=== PATIENT | male | born 1940 | race Caucasian/White ===

== ENCOUNTER 2020-02-18 11:35 | Inpatient (IN) | payer MEDICARE, BC ==
--- NOTE | 2020-02-18 12:40 | RAD ---
RIGHT FOOT 3 VIEWS: HISTORY: Foot wounds, that are not healing. COMPARISON: None. FINDINGS: Soft tissue swelling on the lateral aspect of the right foot. Bone demineralization involving the dis vani medial aspect of the fifth metatarsal and proximal phalanx of the fifth digit. Correlate for osteomyelitis. Minimal vascular calcifications. Lisfranc alignment is maintained. There are degenerat sharon changes in the first metatarsal navicular joint space. Irregularity involving the distal tibia. Refer to separate right ankle radiograph report for further detail. IMPRESSION: Cellulitis and osteomyelitis involving the fifth digit is suspected. Transcribed Date/Time: 02/18/2020 12:51 PM
--- NOTE | 2020-02-18 12:45 | RAD ---
THREE VIEWS RIGHT ANKLE: HISTORY: Nonhealing foot wound. COMPARISON: None. FINDINGS: Osseous lesion with bony remodeling involving the distal tibia. No significant periosteal reaction. N o cortical disruption. No evidence of fractures. There is lateral soft tissue swelling. IMPRESSION: 1. Lateral soft tissue swelling. Correlate for cellulitis given findings in the right foot. 2. Intraosseous lesion along the distal tibia. Lesion is noted on a lower extremity runoff CT 02/26/20 12. Given persistence, possibly a low-grade chondroid lesion is suspected. Transcribed Date/Time: 02/18/2020 12:49 PM
[2020-02-18 13:14] LABS: #Eosinphils 0.2 thou/uL (0.0-0.7); #Lymphocytes 1.1 thou/uL (1.20-3.40); #Monocytes 0.8 thou/uL (0.11-0.59); #Neutrophils 8.8 thou/uL (1.40-6.50); %Basophils 0.1 % (0.0-1.0); %Eosinophils 2.2 % (0.0-10.0); %Lymphocytes 10.1 % (21.0-51.0); %Monocytes 7.4 % (0.0-10.0); %Neutrophils 80.1 % (42.0-75.0); Hemoglobin 14.8 g/dL (14.0-18.0); Mean Corpuscular HGB CONC 36.8 g/dL (32.0-36.0); Mean Corpuscular Hemoglobin 32.9 pg (27.0-31.0); Mean Corpuscular Volume 89.3 fL (78.0-98.0); Mean Platelet Volume 6.9 fL (7.4-10.4); Platelet Count 255 thou/uL (130-400); Red Blood Cell (RBC) Count 4.49 mill/uL (4.70-6.10); White Blood Cell (WBC) Count 10.9 thou/uL (4.8-10.8)
[2020-02-18 13:21] LABS: Albumin 3.7 g/dL (3.4-4.8)
[2020-02-18 13:22] LABS: Chloride 106 mmol/L (98-107); Potassium 4.2 mmol/L (3.5-5.1); Sodium 140 mmol/L (136-145)
[2020-02-18 13:23] LABS: Calcium 9.5 mg/dL (7.8-10.44)
[2020-02-18 13:24] LABS: Globulin 3.3 g/dL (2.4-3.5); Glucose 101 mg/dL (83-110)
[2020-02-18 13:25] LABS: Anion Gap 12 mmol/L (10-20); Carbon Dioxide 26 mmol/L (23-31)
[2020-02-18 13:26] LABS: Alkaline Phosphatase 64 U/L (40-110); Bilirubin, Total 0.9 mg/dL (0.2-1.2)
[2020-02-18 13:27] LABS: Calc. Creatinine Clearance 0 mL/min (70-130); Estimated GFR-MDRD 71
[2020-02-18 13:28] LABS: BUN (Urea Nitrogen) 12 mg/dL (8.4-25.7)
[2020-02-18 13:29] LABS: AST (SGOT) 24 U/L (5-34)
[2020-02-18 13:30] LABS: ALT (SGPT) 27 U/L (8-55)
[2020-02-18] MEDS ORDERED: Vancomycin 1.5 GRAM/300 ML BAG 1.5 GM in Premix Bag 1 BAG IVPB SCH (14:00)
[2020-02-18] MEDS ORDERED: Calcium Carbonate 500 MG ChewTAB PO PRN (15:05)
[2020-02-18] MEDS ORDERED: Ondansetron PF 4 MG/2 ML Vial IVP PRN (15:05)
[2020-02-18] MEDS ORDERED: Bisacodyl 10 MG SUPP PR PRN (15:05)
[2020-02-18] MEDS ORDERED: Senokot S 8.6-50 MG TAB PO PRN (15:05)
[2020-02-18] MEDS ORDERED: Guaifenesin DM 100-10/5 ML UDCUP PO PRN (15:05)
[2020-02-18] MEDS ORDERED: Acetaminophen 325 MG TAB PO PRN (15:05)
[2020-02-18 15:20] VITALS: BMI 26.9
--- NOTE | 2020-02-18 15:58 | HP ---
REASON FOR ADMISSION: Right foot osteomyelitis. HISTORY OF PRESENTING ILLNESS: The patient gives history of working in his yard 2 weeks back and was cutting wood. He apparently slipped and fell. From then on , he has had some pain and discoloration of his right lateral aspect of the foot. The discoloration became worse and it started to swell up from last 1 week. The patient finally started to develop blisters and drainage with open wounds on his ankle and redness starting to creep up his legs. He went to see Dr. Phoenix on Sunday. He was given antibiotics. He had a followup again this morning and was asked to go to the ER. The patient saw Dr. Larios, his vascular surgeon last Sunday. The wound did not appear infected and was told to observe for any worsening. The patient also has seen Dr. Villeda on Sunday for his 6 monthly followup for atrial fibrillation. He is also scheduled for a stress test in the coming weeks. No history of fever. No exposure to coronavirus. The patient has been following strict social distancing and CDC guidelines. PAST MEDICAL AND SURGICAL HISTORY: Chronic atrial fibrillation with prior ablation, dyslipidemia, history of prostate cancer, hypertension, has had multiple surgeries for the hip and 2 hernia repairs with mesh. CURRENT MEDICATIONS: The patient is on, 1. Pradaxa 150 mg twice daily, the last dose was this morning. 2. Fish oil one capsule daily. 3. Norvasc 10 mg daily. 4. Olmesartan daily. 5. Atorvastatin 40 mg daily. 6. Multivitamin one tablet once daily. 7. Lasix 20 mg daily. 8. Vitamin C 500 mg p.o. daily. ALLERGIES: TO CEFDINIR, HYDROCODONE, AND MORPHINE. PERSONAL HISTORY: Does not abuse alcohol or drugs. No history of smoking. FAMILY HISTORY: Mother at the age of 81. She has had history of stroke. Father of lung cancer and its complications, who was a heavy smoker. He at the age of 76. The patient is and lives with his . CODE STATUS: Full. REVIEW OF SYSTEMS: CONSTITUTIONAL: Negative for weight loss or gain, ability to conduct usual activities. SKIN: Negative for rash, itching. EYES: Negative for double vision, pain. ENT/MOUTH: Negative for nose bleeding, neck stiffness, pain, tenderness. CARDIOVASCULAR: Negative for palpitations, dyspnea on exertion, orthopnea. RESPIRATORY: Negative for shortness of breath, wheezing, cough, hemoptysis, fever or night sweats. GASTROINTESTINAL: Negative for poor appetite, abdominal pain, heartburn, nausea , vomiting, constipation, or diarrhea. GENITOURINARY: Negative for urgency, frequency, dysuria, nocturia. MUSCULOSKELETAL: Negative for pain, swelling. NEUROLOGIC/PSYCHIATRIC: Negative for anxiety, depression. ALLERGY/IMMUNOLOGIC: Negative for skin rash, bleeding tendency. PHYSICAL EXAMINATION: GENERAL: The patient is a 79-year-old male, who is currently not in any acute distress. VITAL SIGNS: Blood pressure 146/82, pulse 74 per minute, respiratory rate 18 per minute, temperature 98.2 degrees Fahrenheit, saturating 97% on room air. NECK: Supple. No elevated JVD. HEENT: Eyes; extraocular muscles intact. Pupils reacting to light. Oral cavity, mucous membranes are moist. No exudates or congestion. CARDIOVASCULAR: S1 and S2 heard. Regular rhythm. RESPIRATORY: Air entry 2+ bilateral. No rales or rhonchi. ABDOMEN: Soft. Bowel sounds heard. No tenderness, rigidity, or guarding. EXTREMITIES: Right foot, there is edema, blistering, and discoloration right great toe and right fifth toe. He has ulcer between the 4th and 5th toes. There are ecchymosis and erythema of the forefoot all across his lateral foot and ankle as well. He also has some blister, which is opened up on the medial aspect of the right ankle. Peripheral pulses are 1+ bilateral. CENTRAL NERVOUS SYSTEM: No gross focal motor deficits noted. The patient is alert, awake, and oriented well. PSYCHIATRIC: The patient's mood is euthymic. No hallucinations or delusions. LABORATORY DATA: Three-view right ankle x-ray done, lateral soft tissue swelling. There is intraosseous lesion along the distal tibia, possible low-grade chondroid lesion suspected. Right foot 3-view x-ray shows cellulitis and osteomyelitis involving the 5th digit on the right foot. BUN 12, creatinine 1.0. Liver enzymes within normal limits. CRP is 5.19. Albumin is 3.7. Electrolytes stable. White count of 10, H and H of 14 and 40, platelet count 255, MCV is 89 with 80% neutrophils. CLINICAL IMPRESSION AND PLAN: The patient will be admitted to medical floor for osteomyelitis of the right foot. He will be on vancomycin and Zosyn. I have spoken to Dr. Vasquez Larios for surgical consultation. He has had peripheral vascular disease and has stents in both lower extremities. We will continue his aspirin, Lipitor, Cozaar, and Norvasc as before. The patient's Pradaxa will be held in anticipation of possible surgeries. We will continue to closely monitor him on medical floor. Job ID: [id number] MTDD
[2020-02-18] MEDS: Piperacillin/Tazobactam 3.375 GM in Sodium Chloride 0.9% 100 ML IVPB SCH ×2 (16:59→23:36)
[2020-02-19] MEDS: diphenhydrAMINE 50 MG CAP PO PRN ×2 (00:46→21:35)
--- NOTE | 2020-02-19 01:15 | CON ---
DATE OF CONSULTATION: 02/18/2020 REASON FOR CONSULTATION: Evaluate patient with a right foot osteomyelitis. HISTORY OF PRESENT ILLNESS: Mr. Suggs is a 79-year-old gentleman, who I have known in the past. 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 He was seen in the office approximately a week ago after a fall in the yard. He had pain in his lateral ankle, where he had a blister. The blister has since ruptured and this appears to be healing well. He also had pain in his 5th metatarsal/digital junction. X-rays of this today show osteomyelitis. He has wet gangrene between his 4th and 5th toes. He also has dry gangrene of the great toe and the 2nd toe. PAST MEDICAL HISTORY: 1. Chronic atrial fibrillation, on chronic Pradaxa therapy-prior ablation was unsuccessful in converting him to sinus rhythm. 2. Hypertension. 3. History of prostate cancer. 4. Dyslipidemia. 5. History of popliteal aneurysm, status post stent grafting. PAST SURGICAL HISTORY: 1. Stent grafting his popliteal aneurysm. 2. Hip replacements. 3. Hernia repairs. CURRENT MEDICATIONS: 1. Pradaxa 150 mg b.i.d.-he last took this morning. 2. Fish oil daily. 3. Norvasc 10 mg daily. 4. Atorvastatin 40 mg daily. 5. Lasix 20 mg daily. ALLERGIES: CEFDINIR, HYDROCODONE, AND MORPHINE. 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 He does not use alcohol or other drugs. He has not used tobacco. PHYSICAL EXAMINATION: GENERAL: This is a well-developed, well-nourished man, resting comfortably in the medical unit. VITAL SIGNS: Temperature is 98.6, pulse is 68 and irregularly irregular. Blood pressure is 189/91. HEENT: Sclerae nonicteric. Pupils are equal and round bilaterally. NECK: Supple. He has no carotid bruits. CHEST: Clear bilaterally. HEART: Rhythm is irregularly irregular. There are no murmurs or rubs. ABDOMEN: Soft and nontender. EXTREMITIES: Left lower extremity is warm to the touch. He has palpable posterior tibial pulse. Right lower extremity is warm to the touch down the level of the mid foot. He has a good Doppler signal in his posterior tibial and dorsalis pedis arteries. The forefoot and distally are ischemic. There is skin breakdown between the 4th and 5th toes with foul odor. His great and 2nd toe have blisters and are dusky. Skin on the dorsal surface of the foot appears healthy down to the metatarsophalangeal joints. LABORATORY DATA: White blood cell count is 10.9, hemoglobin is 14.8, platelet count is 255,000, potassium is 4.2, creatinine is 1.02. ASSESSMENT AND PLAN: Distal ischemia of his right foot. We discussed transmetatarsal amputation and the patient is agreeable. We will make some plans for tomorrow morning. Risks, benefits, and options have been outlined with him. Job ID: [id number]
[2020-02-19 05:59] LABS: #Eosinphils 0.4 thou/uL (0.0-0.7); #Lymphocytes 1.6 thou/uL (1.20-3.40); #Monocytes 0.9 thou/uL (0.11-0.59); #Neutrophils 6.5 thou/uL (1.40-6.50); %Basophils 0.1 % (0.0-1.0); %Eosinophils 3.8 % (0.0-10.0); %Lymphocytes 17.5 % (21.0-51.0); %Monocytes 9.4 % (0.0-10.0); %Neutrophils 69.3 % (42.0-75.0); Hemoglobin 14.6 g/dL (14.0-18.0); Mean Corpuscular HGB CONC 35.6 g/dL (32.0-36.0); Mean Corpuscular Hemoglobin 31.5 pg (27.0-31.0); Mean Corpuscular Volume 88.7 fL (78.0-98.0); Mean Platelet Volume 7.1 fL (7.4-10.4); Platelet Count 273 thou/uL (130-400); Red Blood Cell (RBC) Count 4.63 mill/uL (4.70-6.10); White Blood Cell (WBC) Count 9.4 thou/uL (4.8-10.8)
[2020-02-19 06:18] LABS: Anion Gap 14 mmol/L (10-20); BUN (Urea Nitrogen) 11 mg/dL (8.4-25.7); Calc. Creatinine Clearance 70 mL/min (70-130); Calcium 9.1 mg/dL (7.8-10.44); Carbon Dioxide 27 mmol/L (23-31); Chloride 103 mmol/L (98-107); Estimated GFR-MDRD 66; Glucose 103 mg/dL (83-110); Potassium 3.1 mmol/L (3.5-5.1); Sodium 141 mmol/L (136-145)
[2020-02-19] MEDS ORDERED: Potassium Chloride 20 MEQ/100 ML PREMIX BAG IVPB SCH (09:30)
[2020-02-19] MEDS: Amlodipine 10 MG TAB PO SCH (09:31)
[2020-02-19] MEDS: Piperacillin/Tazobactam 3.375 GM in Sodium Chloride 0.9% 100 ML IVPB SCH ×3 (09:31→23:42)
[2020-02-19] MEDS ORDERED: Potassium Chloride 20 MEQ in Premix Bag 1 BAG IVPB SCH (09:45)
[2020-02-19] MEDS: Losartan 25 MG TAB PO SCH (10:14)
[2020-02-19] MEDS: Aspirin 81 mg Enteric Coated Tablet PO SCH (10:14)
[2020-02-19] MEDS: Fish Oil 1,000 MG CAP PO SCH (10:14)
[2020-02-19] MEDS: Multivit, Therapeutic 1 TAB PO SCH (10:15)
[2020-02-19] MEDS ORDERED: Dexamethasone 20 MG/5 ML VIAL ONE (10:58)
[2020-02-19] MEDS ORDERED: Ropivacaine 0.5% HCl/PF (150 MG/30 ML VIAL) ONE (10:58)
[2020-02-19] MEDS ORDERED: Vancomycin HCl 1.75 GM in Sodium Chloride 0.9% 500 ML IVPB SCH (14:00)
[2020-02-19] MEDS ORDERED: Fentanyl 100 MCG/2 ML VIAL ONE (14:08)
[2020-02-19] MEDS ORDERED: Dexamethasone 4 mg/ml Vial ONE (14:12)
[2020-02-19] MEDS ORDERED: EPINEPHrine 1 MG/ML AMP ONE (14:18)
[2020-02-19] MEDS ORDERED: Bupivacaine PF 0.5% 30 ML VIAL ONE (14:18)
[2020-02-19] MEDS ORDERED: Lidocaine 1% w/Epinephrine 1:100K 20 ML VIAL ONE (14:18)
[2020-02-19] MEDS ORDERED: Propofol 500 MG/50 ML VIAL ONE (14:35)
[2020-02-19] MEDS ORDERED: traMADol HCl 50 MG TAB PO PRN (16:14)
[2020-02-19] MEDS ORDERED: Fentanyl 100 MCG/2 ML VIAL SLOW IVP PRN ×2 (16:14)
[2020-02-19] MEDS: Atorvastatin Calcium 40 MG TAB PO SCH (21:07)
--- NOTE | 2020-02-19 22:04 | PDOC.HOSPP ---
- Subjective Encounter Date: 02/19/20 Encounter Time: 10:30 Subjective: Patient seen and examined for osteomyelitis. Pain controlled. No new complaints. No overnight events - Objective Vital Signs & Weight: Vital Signs (12 hours) Temp Pulse Resp BP BP Pulse Ox 02/19/20 20:00 98.2 F 55 L 20 154/82 H 95 02/19/20 17:02 57 L 18 154/82 H 95 02/19/20 12:04 98.8 F 60 18 151/75 H 96 Weight Admit Weight 192 lb 11.2 oz Weight 192 lb 11.2 oz I&O: 02/18/20 02/19/20 02/20/20 06:59 06:59 06:59 Intake Total 200 920 Balance 200 920 Result Diagrams: 02/19/20 05:21 02/19/20 05:21 Radiology Reviewed by me: Yes (foot XR - reviewed) Hospitalist ROS - Review of Systems Respiratory: denies: cough, dry, shortness of breath, hemoptysis, SOB with excertion, pleuritic pain, sputum, wheezing, other Cardiovascular: denies: chest pain, palpitations, orthopnea, paroxysmal noc. dyspnea, edema, light headedness, other - Medication Medications: Active Medications Generic Name Dose Route Start Last Admin Trade Name Freq PRN Reason Stop Dose Admin Amlodipine Besylate 10 mg 02/19/20 09:00 02/19/20 09:31 Norvasc PO 10 mg DAILY CHERYL Administration Aspirin 81 mg 02/19/20 09:00 02/19/20 10:14 Ecotrin PO Not Given DAILY CHERYL Atorvastatin Calcium 40 mg 02/19/20 21:00 02/19/20 21:07 Lipitor PO 40 mg HS CHERYL Administration Diphenhydramine HCl 50 mg 02/18/20 23:43 02/19/20 21:35 Benadryl PO 50 mg HS PRN Administration Insomnia Fish Oil 1,000 mg 02/19/20 09:00 02/19/20 10:14 Fish Oil PO Not Given DAILY CHERYL Piperacillin Sod/Tazobactam 100 mls @ 200 mls/hr 02/18/20 16:00 02/19/20 16: 52 Sod 3.375 gm/ Sodium Chloride IVPB 100 mls 0800,1600,2359 CHERYL Administration Vancomycin HCl 1.75 gm/ Sodium 500 mls @ 250 mls/hr 02/19/20 14:00 02/19/20 16:44 Chloride IVPB Not Given 1400 CHERYL Losartan Potassium 25 mg 02/19/20 09:00 02/19/20 10:14 Cozaar PO Not Given DAILY CHERYL Multivitamins 1 tab 02/19/20 09:00 02/19/20 10:15 Theragran PO Not Given DAILY CHERYL - Exam General Appearance: NAD Neck: supple, no JVD Heart: no gallops, irregular Respiratory: no wheezes, no ronchi Gastrointestinal: non-tender, non-distended, normal bowel sounds Hosp A/P - Plan DVT proph w/SCDs Right foot osteomyelitis PVD HTN Dyslipidemia Hypokalemia Chronic Afib on anticoag h/o Prostate CA PLAN: TMA today Replace Potassium AM labs CV input appreciated Cont other meds Anticoag on hold
--- NOTE | 2020-02-19 22:38 | OP ---
DATE OF PROCEDURE: 02/19/2020 PREOPERATIVE DIAGNOSES: Ischemic toes with wet gangrene of the fourth and fifth toes, osteomyelitis of the fifth metatarsophalangeal joint, and dry gangrene of the great and second toe. POSTOPERATIVE DIAGNOSES: Ischemic toes with wet gangrene of the fourth and fifth toes, osteomyelitis of the fifth metatarsophalangeal joint, and dry gangrene of the great and second toe. PROCEDURE PERFORMED: Transmetatarsal amputation of the right foot. ANESTHESIA: A popliteal and visceral block provided by Dr. Singletary and sedation. ESTIMATED BLOOD LOSS: Less than 100. SPECIMENS: His toes. DESCRIPTION OF PROCEDURE: After consent was obtained, the patient was brought to the operating room and placed in supine position on the operating room table. Appropriate central line and monitors were placed and IV sedation begun. Right foot was prepped and draped in usual sterile fashion. A skin incision was made across the distal metatarsals, creating a posterior dorsal flap. The skin and subcutaneous tissues were divided down to the level of the bone. The posterior flap was created. Bones were divided with a saw and were smoothed. The remainder of the amputation was completed with electrocautery. The wound was copiously irrigated. The posterior flap was brought up and positioned with interrupted 2-0 Vicryl. Skin clips were used to close the skin. A fluff dressing was applied. The patient tolerated the procedure well and was transferred to the recovery room in stable condition. Job ID: [id number]
[2020-02-20 05:50] LABS: #Lymphocytes 0.9 thou/uL (1.20-3.40); #Monocytes 0.5 thou/uL (0.11-0.59); #Neutrophils 7.9 thou/uL (1.40-6.50); %Basophils 0.2 % (0.0-1.0); %Eosinophils 0.2 % (0.0-10.0); %Lymphocytes 9.5 % (21.0-51.0); %Monocytes 4.9 % (0.0-10.0); %Neutrophils 85.2 % (42.0-75.0); Hemoglobin 14.9 g/dL (14.0-18.0); Mean Corpuscular Volume 88.2 fL (78.0-98.0); Mean Platelet Volume 6.9 fL (7.4-10.4); Platelet Count 277 thou/uL (130-400); RBC Distribution Width 12.8 % (11.5-14.5); Red Blood Cell (RBC) Count 4.94 mill/uL (4.70-6.10); White Blood Cell (WBC) Count 9.3 thou/uL (4.8-10.8)
[2020-02-20 06:17] LABS: Anion Gap 13 mmol/L (10-20); BUN (Urea Nitrogen) 15 mg/dL (8.4-25.7); Calc. Creatinine Clearance 71 mL/min (70-130); Calcium 9.3 mg/dL (7.8-10.44); Carbon Dioxide 25 mmol/L (23-31); Chloride 105 mmol/L (98-107); Estimated GFR-MDRD 67; Glucose 174 mg/dL (83-110); Magnesium 2.2 mg/dL (1.6-2.6); Potassium 3.9 mmol/L (3.5-5.1); Sodium 139 mmol/L (136-145)
[2020-02-20] MEDS: Piperacillin/Tazobactam 3.375 GM in Sodium Chloride 0.9% 100 ML IVPB SCH ×2 (09:11→17:25)
[2020-02-20] MEDS: Fish Oil 1,000 MG CAP PO SCH (09:11)
[2020-02-20] MEDS: Amlodipine 10 MG TAB PO SCH (09:12)
[2020-02-20] MEDS: Multivit, Therapeutic 1 TAB PO SCH (09:12)
[2020-02-20] MEDS: Aspirin 81 mg Enteric Coated Tablet PO SCH (09:13)
[2020-02-20] MEDS: Losartan 25 MG TAB PO SCH (09:24)
--- NOTE | 2020-02-20 11:31 | PDOC.HOSPP ---
- Subjective Encounter Date: 02/20/20 Encounter Time: 08:00 Subjective: Patient seen and examined for Rt foot gangrene. Pain controlled. No fever or chills. No new complaints. No overnight events - Objective Vital Signs & Weight: Vital Signs (12 hours) Temp Pulse Resp BP BP Pulse Ox 02/20/20 09:12 54 L 145/80 H 02/20/20 07:49 98.0 F 54 L 16 145/80 H 96 Weight Admit Weight 192 lb 11.2 oz Weight 192 lb 11.2 oz I&O: 02/19/20 02/20/20 02/21/20 06:59 06:59 06:59 Intake Total 200 920 Balance 200 920 Result Diagrams: 02/20/20 05:37 02/20/20 05:37 Hospitalist ROS - Review of Systems Respiratory: denies: cough, dry, shortness of breath, hemoptysis, SOB with excertion, pleuritic pain, sputum, wheezing, other Cardiovascular: denies: chest pain, palpitations, orthopnea, paroxysmal noc. dyspnea, edema, light headedness, other - Medication Medications: Active Medications Generic Name Dose Route Start Last Admin Trade Name Freq PRN Reason Stop Dose Admin Amlodipine Besylate 10 mg 02/19/20 09:00 02/20/20 09:12 Norvasc PO 10 mg DAILY CHERYL Administration Aspirin 81 mg 02/19/20 09:00 02/20/20 09:13 Ecotrin PO Not Given DAILY CHERYL Atorvastatin Calcium 40 mg 02/19/20 21:00 02/19/20 21:07 Lipitor PO 40 mg HS CHERYL Administration Diphenhydramine HCl 50 mg 02/18/20 23:43 02/19/20 21:35 Benadryl PO 50 mg HS PRN Administration Insomnia Fish Oil 1,000 mg 02/19/20 09:00 02/20/20 09:11 Fish Oil PO 1,000 mg DAILY CHERYL Administration Piperacillin Sod/Tazobactam 100 mls @ 200 mls/hr 02/18/20 16:00 02/20/20 09: 11 Sod 3.375 gm/ Sodium Chloride IVPB 100 mls 0800,1600,2359 CHERYL Administration Vancomycin HCl 1.75 gm/ Sodium 500 mls @ 250 mls/hr 02/19/20 14:00 02/19/20 16:44 Chloride IVPB Not Given 1400 CHERYL Losartan Potassium 25 mg 02/19/20 09:00 02/20/20 09:24 Cozaar PO 25 mg DAILY CHERYL Administration Multivitamins 1 tab 02/19/20 09:00 02/20/20 09:12 Theragran PO 1 tab DAILY CHERYL Administration - Exam General Appearance: NAD Heart: RRR, no gallops Respiratory: no wheezes, no ronchi Gastrointestinal: soft, non-tender, normal bowel sounds Extremities: no cyanosis Extremities - other findings: Rt foot dressing + Neurological: no new deficit Hosp A/P - Plan Right foot osteomyelitis/gangrene s/p TMA PVD HTN Dyslipidemia Hypokalemia Chronic Afib on anticoag h/o Prostate CA PLAN: Cont supportive care Cont ASA/Amlodipine Cont Losartan Cont Atbx Monitor Vancomycin level Cont other meds as above Anticoag restarted
[2020-02-20 13:19] LABS: Vancomycin, Trough 8.3 ug/mL
[2020-02-20] MEDS: Vancomycin HCl 1.25 GM in Sodium Chloride 0.9% 250 ML 250 ML IVPB SCH (14:36)
[2020-02-20] MEDS: Dabigatran 150 mg Capsule PO SCH (20:01)
[2020-02-20] MEDS: Atorvastatin Calcium 40 MG TAB PO SCH (20:01)
[2020-02-20] MEDS: diphenhydrAMINE 50 MG CAP PO PRN (20:19)
[2020-02-21] MEDS: Piperacillin/Tazobactam 3.375 GM in Sodium Chloride 0.9% 100 ML IVPB SCH ×3 (00:26→18:01)
[2020-02-21] MEDS: Vancomycin HCl 1.25 GM in Sodium Chloride 0.9% 250 ML 250 ML IVPB SCH ×2 (01:31→14:49)
[2020-02-21] MEDS: traMADol HCl 50 MG TAB PO PRN ×2 (03:34→10:47)
[2020-02-21] MEDS: Losartan 25 MG TAB PO SCH (09:20)
[2020-02-21] MEDS: Fish Oil 1,000 MG CAP PO SCH (09:20)
[2020-02-21] MEDS: Multivit, Therapeutic 1 TAB PO SCH (09:20)
[2020-02-21] MEDS: Amlodipine 10 MG TAB PO SCH ×2 (09:20→21:23)
[2020-02-21] MEDS: Dabigatran 150 mg Capsule PO SCH ×2 (09:22→21:12)
[2020-02-21] MEDS: Aspirin 81 mg Enteric Coated Tablet PO SCH (09:22)
[2020-02-21] MEDS ORDERED: Polyethylene Glycol 3350 17 GM Packet PO PRN (11:03)
--- NOTE | 2020-02-21 11:04 | PDOC.HOSPP ---
- Subjective Encounter Date: 02/21/20 Encounter Time: 10:00 Subjective: Patient seen and examined for osteomyelitis/gangrene. Pain controlled. No fever/ N/V/diarrhea. No new complaints. No overnight events - Objective Vital Signs & Weight: Vital Signs (12 hours) Temp Pulse Resp BP Pulse Ox 02/21/20 09:10 94 L 02/21/20 07:48 98.1 F 62 20 166/83 H 94 L Weight Admit Weight 192 lb 11.2 oz Weight 192 lb 11.2 oz I&O: 02/20/20 02/21/20 02/22/20 06:59 06:59 06:59 Intake Total 920 830 Output Total 1050 Balance 920 -220 Result Diagrams: 02/20/20 05:37 02/20/20 05:37 Hospitalist ROS - Review of Systems Cardiovascular: denies: chest pain, palpitations, orthopnea, paroxysmal noc. dyspnea, edema, light headedness, other Gastrointestinal: denies: nausea, vomiting, abdominal pain, diarrhea, constipation, melena, hematochezia, other - Medication Medications: Active Medications Generic Name Dose Route Start Last Admin Trade Name Freq PRN Reason Stop Dose Admin Amlodipine Besylate 10 mg 02/19/20 09:00 02/21/20 09:20 Norvasc PO 10 mg DAILY CHERYL Administration Aspirin 81 mg 02/19/20 09:00 02/21/20 09:22 Ecotrin PO Not Given DAILY CHERYL Atorvastatin Calcium 40 mg 02/19/20 21:00 02/20/20 20:01 Lipitor PO 40 mg HS CHERYL Administration Dabigatran 150 mg 02/20/20 21:00 02/21/20 09:22 Pradaxa PO 150 mg BID CHERYL Administration Diphenhydramine HCl 50 mg 02/18/20 23:43 02/20/20 20:19 Benadryl PO 50 mg HS PRN Administration Insomnia Fish Oil 1,000 mg 02/19/20 09:00 02/21/20 09:20 Fish Oil PO 1,000 mg DAILY CHERYL Administration Piperacillin Sod/Tazobactam 100 mls @ 200 mls/hr 02/18/20 16:00 02/21/20 09: 18 Sod 3.375 gm/ Sodium Chloride IVPB 100 mls 0800,1600,2359 CHERYL Administration Vancomycin HCl 1.25 gm/ Sodium 250 mls @ 166.667 mls/hr 02/20/20 14:00 01:31 Chloride IVPB 250 mls 0200,1400 CHERYL Administration Losartan Potassium 25 mg 02/19/20 09:00 02/21/20 09:20 Cozaar PO 25 mg DAILY CHERYL Administration Multivitamins 1 tab 02/19/20 09:00 02/21/20 09:20 Theragran PO 1 tab DAILY CHERYL Administration Tramadol HCl 50 mg 02/19/20 16:14 02/21/20 10:47 Ultram PO 50 mg Q6H PRN Administration Moderate Pain (4-6) - Exam General Appearance: NAD Heart: RRR, no gallops Respiratory: no wheezes, no rales Gastrointestinal: non-tender, non-distended, normal bowel sounds Extremities: no cyanosis, no clubbing Hosp A/P - Plan Right foot osteomyelitis/gangrene s/p TMA PVD HTN Dyslipidemia Hypokalemia Chronic Afib on anticoag h/o Prostate CA PLAN: Cont ASA/Amlodipine/ Losartan Cont IV Vancomycin/Zosyn Monitor Vancomycin level Cont other meds as above
[2020-02-21] MEDS: Polyethylene Glycol 3350 17 GM Packet PO SCH (21:11)
[2020-02-21] MEDS: Atorvastatin Calcium 40 MG TAB PO SCH (21:12)
[2020-02-21] MEDS: Senokot S 8.6-50 MG TAB PO SCH (21:12)
[2020-02-22] MEDS: Piperacillin/Tazobactam 3.375 GM in Sodium Chloride 0.9% 100 ML IVPB SCH ×4 (00:51→23:19)
[2020-02-22 01:17] LABS: Vancomycin, Trough 21.9 ug/mL
[2020-02-22] MEDS: Vancomycin 1 GM in Premix Bag 1 BAG IVPB SCH ×2 (01:52→14:04)
[2020-02-22] MEDS: Losartan 25 MG TAB PO SCH (08:22)
[2020-02-22] MEDS: Dabigatran 150 mg Capsule PO SCH ×2 (08:22→20:35)
[2020-02-22] MEDS: Multivit, Therapeutic 1 TAB PO SCH (08:23)
[2020-02-22] MEDS: Fish Oil 1,000 MG CAP PO SCH (08:23)
[2020-02-22] MEDS: Senokot S 8.6-50 MG TAB PO SCH ×2 (09:13→20:36)
[2020-02-22] MEDS: Aspirin 81 mg Enteric Coated Tablet PO SCH (09:13)
--- NOTE | 2020-02-22 12:58 | PDOC.HOSPP ---
- Subjective Encounter Date: 02/22/20 Encounter Time: 11:30 Subjective: Patient seen and examined for gangrene. Pain controlled. No N/V. No new complaints. No overnight events - Objective Vital Signs & Weight: Vital Signs (12 hours) Temp Pulse Resp BP Pulse Ox 02/22/20 08:20 95 02/22/20 07:07 98.3 F 72 18 165/82 H 95 Weight Admit Weight 192 lb 11.2 oz Weight 192 lb 11.2 oz I&O: 02/21/20 02/22/20 02/23/20 06:59 06:59 06:59 Intake Total 830 2070 Output Total 1050 2550 Balance -220 -480 Result Diagrams: 02/20/20 05:37 02/20/20 05:37 Hospitalist ROS - Review of Systems Respiratory: denies: cough, dry, shortness of breath, hemoptysis, SOB with excertion, pleuritic pain, sputum, wheezing, other Cardiovascular: denies: chest pain, palpitations, orthopnea, paroxysmal noc. dyspnea, edema, light headedness, other - Medication Medications: Active Medications Generic Name Dose Route Start Last Admin Trade Name Freq PRN Reason Stop Dose Admin Amlodipine Besylate 10 mg 02/21/20 21:00 02/21/20 21:23 Norvasc PO 10 mg 2100 CHERYL Administration Aspirin 81 mg 02/19/20 09:00 02/22/20 09:13 Ecotrin PO Not Given DAILY CHERYL Atorvastatin Calcium 40 mg 02/19/20 21:00 02/21/20 21:12 Lipitor PO 40 mg HS CHERYL Administration Dabigatran 150 mg 02/20/20 21:00 02/22/20 08:22 Pradaxa PO 150 mg BID CHERYL Administration Diphenhydramine HCl 50 mg 02/18/20 23:43 02/20/20 20:19 Benadryl PO 50 mg HS PRN Administration Insomnia Fish Oil 1,000 mg 02/19/20 09:00 02/22/20 08:23 Fish Oil PO 1,000 mg DAILY CHERYL Administration Piperacillin Sod/Tazobactam 100 mls @ 200 mls/hr 02/18/20 16:00 02/22/20 08: 23 Sod 3.375 gm/ Sodium Chloride IVPB 100 mls 0800,1600,2359 CHERYL Administration Vancomycin HCl 1 gm/ Device 200 mls @ 200 mls/hr 02/22/20 02:00 02/22/20 01: 52 IVPB 200 mls 0200,1400 CHERYL Administration Losartan Potassium 25 mg 02/19/20 09:00 02/22/20 08:22 Cozaar PO 25 mg DAILY CHERYL Administration Multivitamins 1 tab 02/19/20 09:00 02/22/20 08:23 Theragran PO 1 tab DAILY CHERYL Administration Polyethylene Glycol 17 gm 02/21/20 21:00 02/21/20 21:11 Miralax PO Not Given HS CHERYL Senna/Docusate Sodium 1 tab 02/21/20 21:00 02/22/20 09:13 Senokot S PO Not Given BID CHERYL Tramadol HCl 50 mg 02/19/20 16:14 02/21/20 10:47 Ultram PO 50 mg Q6H PRN Administration Moderate Pain (4-6) - Exam General Appearance: NAD Neck: supple, no JVD Heart: no gallops, no rubs Respiratory: no wheezes, no rales, no ronchi Gastrointestinal: soft, non-tender, non-distended Extremities: no cyanosis, no clubbing Neurological: no new deficit Hosp A/P - Plan Right foot osteomyelitis/gangrene s/p TMA PVD HTN Dyslipidemia Hypokalemia Chronic Afib on anticoag h/o Prostate CA PLAN: on IV Vancomycin/Zosyn Monitor Vancomycin level Cont Amlodipine,Losartan and other meds as above AM labs Cont PT
[2020-02-22] MEDS: Sodium Chloride 0.9% 1,000 ML IV SCH (19:19)
[2020-02-22] MEDS: Amlodipine 10 MG TAB PO SCH (20:35)
[2020-02-22] MEDS: Atorvastatin Calcium 40 MG TAB PO SCH (20:35)
[2020-02-22] MEDS: Polyethylene Glycol 3350 17 GM Packet PO SCH (20:35)
[2020-02-23] MEDS: Vancomycin 1 GM in Premix Bag 1 BAG IVPB SCH ×2 (01:45→16:01)
[2020-02-23 06:42] LABS: Hemoglobin 15.1 g/dL (14.0-18.0); Platelet Count 269 thou/uL (130-400)
[2020-02-23] MEDS: Piperacillin/Tazobactam 3.375 GM in Sodium Chloride 0.9% 100 ML IVPB SCH ×2 (09:41→16:00)
[2020-02-23] MEDS: Dabigatran 150 mg Capsule PO SCH ×2 (09:41→20:27)
[2020-02-23] MEDS: Losartan 25 MG TAB PO SCH (09:42)
[2020-02-23] MEDS: Senokot S 8.6-50 MG TAB PO SCH ×2 (09:42→20:25)
[2020-02-23] MEDS: Multivit, Therapeutic 1 TAB PO SCH (09:42)
[2020-02-23] MEDS: Aspirin 81 mg Enteric Coated Tablet PO SCH (09:42)
[2020-02-23] MEDS: Fish Oil 1,000 MG CAP PO SCH (09:42)
--- NOTE | 2020-02-23 11:07 | PDOC.HOSPP ---
- Subjective Encounter Date: 02/23/20 Encounter Time: 09:40 Subjective: no pain, is ambulating in room feels better - Objective Vital Signs & Weight: Vital Signs (12 hours) Temp Pulse Resp BP Pulse Ox 02/23/20 08:00 98.6 F 60 20 165/79 H 96 Weight Admit Weight 192 lb 11.2 oz Weight 192 lb 11.2 oz I&O: 02/22/20 02/23/20 02/24/20 06:59 06:59 06:59 Intake Total 2070 2340 Output Total 2550 2600 Balance -480 -260 Result Diagrams: 02/23/20 06:20 02/23/20 06:20 Hospitalist ROS - Medication Medications: Active Medications Generic Name Dose Route Start Last Admin Trade Name Freq PRN Reason Stop Dose Admin Amlodipine Besylate 10 mg 02/21/20 21:00 02/22/20 20:35 Norvasc PO 10 mg 2100 CHERYL Administration Aspirin 81 mg 02/19/20 09:00 02/23/20 09:42 Ecotrin PO Not Given DAILY CHERYL Atorvastatin Calcium 40 mg 02/19/20 21:00 02/22/20 20:35 Lipitor PO 40 mg HS CHERYL Administration Dabigatran 150 mg 02/20/20 21:00 02/23/20 09:41 Pradaxa PO 150 mg BID CHERYL Administration Diphenhydramine HCl 50 mg 02/18/20 23:43 02/20/20 20:19 Benadryl PO 50 mg HS PRN Administration Insomnia Fish Oil 1,000 mg 02/19/20 09:00 02/23/20 09:42 Fish Oil PO 1,000 mg DAILY CHERYL Administration Piperacillin Sod/Tazobactam 100 mls @ 200 mls/hr 02/18/20 16:00 02/23/20 09: 41 Sod 3.375 gm/ Sodium Chloride IVPB 100 mls 0800,1600,2359 CHERYL Administration Vancomycin HCl 1 gm/ Device 200 mls @ 200 mls/hr 02/22/20 02:00 02/23/20 01: 45 IVPB 200 mls 0200,1400 CHERYL Administration Sodium Chloride 1,000 mls @ 30 mls/hr 02/22/20 16:15 02/22/20 19:19 Normal Saline 0.9% IV 1,000 mls .Q24H CHERYL Administration Losartan Potassium 25 mg 02/19/20 09:00 02/23/20 09:42 Cozaar PO 25 mg DAILY CHERYL Administration Multivitamins 1 tab 02/19/20 09:00 02/23/20 09:42 Theragran PO 1 tab DAILY CHERYL Administration Polyethylene Glycol 17 gm 02/21/20 21:00 02/22/20 20:35 Miralax PO Not Given HS CHERYL Senna/Docusate Sodium 1 tab 02/21/20 21:00 02/23/20 09:42 Senokot S PO Not Given BID CHERYL Tramadol HCl 50 mg 02/19/20 16:14 02/21/20 10:47 Ultram PO 50 mg Q6H PRN Administration Moderate Pain (4-6) - Exam General Appearance: awake alert Eye: PERRL, anicteric sclera ENT: no oropharyngeal lesions, moist mucosa Neck: supple, no JVD Heart: RRR, no murmur Respiratory: no wheezes, no rales Gastrointestinal: soft, non-tender, non-distended, normal bowel sounds Extremities: no cyanosis, no edema Extremities - other findings: right forefoot in dressing Neurological: cranial nerve grossly intact, no focal deficits Psychiatric: normal affect, A&O x 3 Hosp A/P (1) Gangrene of right foot Code(s): I96 - GANGRENE, NOT ELSEWHERE CLASSIFIED Status: Acute (2) s/p transmetarsal amputation right Status: Acute (3) PVD (peripheral vascular disease) Code(s): I73.9 - PERIPHERAL VASCULAR DISEASE, UNSPECIFIED Status: Chronic (4) HTN (hypertension) Code(s): I10 - ESSENTIAL (PRIMARY) HYPERTENSION Status: Chronic Qualifiers: Hypertension type: essential hypertension Qualified Code(s): I10 - Essential (primary) hypertension (5) Dyslipidemia Code(s): E78.5 - HYPERLIPIDEMIA, UNSPECIFIED Status: Chronic (6) Chronic a-fib Code(s): I48.20 - CHRONIC ATRIAL FIBRILLATION, UNSPECIFIED Status: Chronic - Plan is on asp, lipitor, pradaxa, cozaar, fish oil, vanc and zosyn fentanyl prn will have dressing change today, likely will need home health with wound care? dc plan per CTS adv ?antibiotics on discharge, await histopath/CTS advice
[2020-02-23 14:21] LABS: Vancomycin, Trough 13.1 ug/mL
[2020-02-23] MEDS ORDERED: Vancomycin HCl 1.25 GM in Sodium Chloride 0.9% 250 ML 250 ML IVPB SCH (15:00)
[2020-02-23] MEDS: Polyethylene Glycol 3350 17 GM Packet PO SCH (20:25)
[2020-02-23] MEDS: Sulfameth/Trimethoprim DS 800-160mg TAB PO SCH (20:27)
[2020-02-23] MEDS: Amlodipine 10 MG TAB PO SCH (20:27)
[2020-02-23] MEDS: Atorvastatin Calcium 40 MG TAB PO SCH (20:27)
[2020-02-23] MEDS: Sodium Chloride 0.9% 1,000 ML IV SCH (20:28)
--- NOTE | 2020-02-24 03:13 | DIS ---
DATE OF ADMISSION: 02/18/2020 DATE OF DISCHARGE: 02/24/2020 HISTORY OF PRESENT ILLNESS: Mr. Suggs was admitted with ischemic toes on the right foot. He underwent a right transmetatarsal amputation. He has done well postoperatively without any issues. He is ambulatory with a walker using touchdown weightbearing on his right foot. He is being discharged to home with no changes in medication. He will have p.r.n. script for tramadol and a Bactrim DS script for 10 days. Follow him up in 2 weeks in the office. Job ID: [id number]
[2020-02-24] MEDS: Multivit, Therapeutic 1 TAB PO SCH (09:08)
[2020-02-24] MEDS: Aspirin 81 mg Enteric Coated Tablet PO SCH (09:08)
[2020-02-24] MEDS: Sulfameth/Trimethoprim DS 800-160mg TAB PO SCH (09:08)
[2020-02-24] MEDS: Fish Oil 1,000 MG CAP PO SCH (09:08)
[2020-02-24] MEDS: Losartan 25 MG TAB PO SCH (09:08)
[2020-02-24] MEDS: Senokot S 8.6-50 MG TAB PO SCH (09:09)
[2020-02-24] MEDS: Dabigatran 150 mg Capsule PO SCH (12:19)
[2020-02-24 12:40] VITALS: BP 169/90; TEMP 98.1
== END 2020-02-24 13:58 | disposition home or self-care (01) | DRG 240 ==
LOC: ERS 11:35 → T4-A 14:08
PROVIDERS: ADMIT Internal Medicine; ATTEND Internal Medicine
PROC: 0Y6M0Z9 Detachment at Right Foot, Partial 1st Ray, Open Approach (ICD-10-PCS; principal; 2020-02-19)
PROC: 0Y6M0ZB Detachment at Right Foot, Partial 2nd Ray, Open Approach (ICD-10-PCS; 2020-02-19)
PROC: 0Y6M0ZC Detachment at Right Foot, Partial 3rd Ray, Open Approach (ICD-10-PCS; 2020-02-19)
PROC: 0Y6M0ZD Detachment at Right Foot, Partial 4th Ray, Open Approach (ICD-10-PCS; 2020-02-19)
PROC: 0Y6M0ZF Detachment at Right Foot, Partial 5th Ray, Open Approach (ICD-10-PCS; 2020-02-19)
DX: I96 Gangrene, not elsewhere classified (principal); M86.171 Other acute osteomyelitis, right ankle and foot; I48.20 Chronic atrial fibrillation, unspecified; E78.5 Hyperlipidemia, unspecified; I10 Essential (primary) hypertension; E78.00 Pure hypercholesterolemia, unspecified; E87.6 Hypokalemia; Z85.46 Personal history of malignant neoplasm of prostate; Z88.5 Allergy status to narcotic agent; Z79.899 Other long term (current) drug therapy; Z79.01 Long term (current) use of anticoagulants; Z88.1 Allergy status to other antibiotic agents
CPT/HCPCS: 36415; 80048; 80053; 80202; 82565; 83605; 83735; 85014; 85018; 85025; 85049; 86140; 87040; 88305; 88311; 96365; J0171; J0744; J1100; J2543; J2704; J2795; J3010; J3370; J3480; J3490; J7050; Q0163; S0020

== ENCOUNTER 2020-03-19 07:05 | Outpatient (CLI) | payer MEDICARE, BC, OTHER ==
[2020-03-19 10:39] LABS: #Eosinphils 0.5 thou/uL (0.0-0.7); #Lymphocytes 1.3 thou/uL (1.20-3.40); #Monocytes 0.6 thou/uL (0.11-0.59); %Basophils 0.6 % (0.0-1.0); %Eosinophils 7.4 % (0.0-10.0); %Monocytes 9.4 % (0.0-10.0); %Neutrophils 62.6 % (42.0-75.0); Hemoglobin 16.8 g/dL (14.0-18.0); Mean Corpuscular HGB CONC 32.1 g/dL (32.0-36.0); Mean Corpuscular Hemoglobin 28.3 pg (27.0-31.0); Platelet Count 177 thou/uL (130-400); RBC Distribution Width 14.2 % (11.5-14.5); Red Blood Cell (RBC) Count 5.94 mill/uL (4.70-6.10); White Blood Cell (WBC) Count 6.3 thou/uL (4.8-10.8)
[2020-03-19 10:52] LABS: ALT (SGPT) 30 U/L (8-55); AST (SGOT) 26 U/L (5-34); Albumin 4.4 g/dL (3.4-4.8); Alkaline Phosphatase 79 U/L (40-110); Anion Gap 13 mmol/L (10-20); BUN (Urea Nitrogen) 14 mg/dL (8.4-25.7); Bilirubin, Total 1.4 mg/dL (0.2-1.2); Calc. Creatinine Clearance 0 mL/min (70-130); Carbon Dioxide 29 mmol/L (23-31); Chloride 105 mmol/L (98-107); Estimated GFR-MDRD 71; Globulin 3.4 g/dL (2.4-3.5); Glucose 104 mg/dL (83-110); Potassium 4.1 mmol/L (3.5-5.1); Protein, Total 7.8 g/dL (5.8-8.1); Sodium 143 mmol/L (136-145)
[2020-03-19 18:06] LABS: SARS-CoV-2 MS2 Positive; SARS-CoV-2 N Gene Negative; SARS-CoV-2 S Gene Negative; SARS-CoV-2 orf1ab Negative
== END 2020-03-19 07:06 | disposition home or self-care (01) ==
LOC: LABBT 07:05
PROVIDERS: ATTEND Internal Medicine Cardiovascular Disease
DX: Z01.812 Encounter for preprocedural laboratory examination (principal); Z11.59 Encounter for screening for other viral diseases; R94.39 Abnormal result of other cardiovascular function study
CPT/HCPCS: 80053; 85025; U0003; 87635

== ENCOUNTER 2020-03-22 05:55 | Day surgery (SDC) | payer MEDICARE, BC ==
[2020-03-19 08:37] VITALS: BMI 26.2
[2020-03-22] MEDS ORDERED: Nitroglycerin 100MG/250ML BOT 250 ML ONE (06:48)
[2020-03-22] MEDS ORDERED: Heparin 10,000 UNITS/1 ML VIAL ONE (06:48)
[2020-03-22] MEDS ORDERED: Verapamil 5 MG/2 ML VIAL ONE (06:48)
[2020-03-22] MEDS ORDERED: Iopamidol 370 76% 100 ML VIAL ONE (09:04)
--- NOTE | 2020-03-22 13:39 | CON ---
DATE OF CONSULTATION: 03/22/2020 REASON FOR CONSULTATION: Evaluate the patient for coronary artery bypass grafting. HISTORY OF PRESENT ILLNESS: Mr. Suggs is a very pleasant 79-year-old gentleman, who has had shortness of breath and fatigue. His ejection fraction was 28% on Cardiolite. He also had inferolateral ischemia. This has led to cardiac catheterization today, which shows severe three-vessel disease. Right coronary is completely occluded. There is filling with [id number] collaterals of the PDA system. He also has a critical LAD and diagonal lesion, both of which are bypassable. The OM system has multiple vessels within it and it is difficult to tell what will be bypassable and will not be bypassable. My presumption is at least two of these arteries will be bypassable within his OM system. I have been asked to see him to discuss coronary artery bypass grafting. PAST MEDICAL HISTORY: 1. History of chronic atrial fibrillation, on Pradaxa. 2. History of bilateral popliteal aneurysm, status post endo repair. 3. Peripheral vascular disease, status post right transmetatarsal amputation. 4. Hypertension. 5. Dyslipidemia. 6. History of aortic insufficiency. PAST SURGICAL HISTORY: 1. Hip replacement. 2. Left foot transmetatarsal amputation. 3. Bilateral stent grafting of popliteal aneurysms. SOCIAL HISTORY: He does not use tobacco. 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 He is . ALLERGIES: MORPHINE. CURRENT MEDICATIONS: 1. Pradaxa 150 mg b.i.d. 2. Atorvastatin 40 mg daily. 3. Lasix 20 mg daily. 4. Fish oil 1000 mg daily. 5. Vitamin C daily. 6. Amlodipine 10 mg daily. 7. Olmesartan medoxomil 40 mg daily. PHYSICAL EXAMINATION: GENERAL: This is a well-developed, well-nourished man, resting comfortably in the post catheterization area. VITAL SIGNS: Height is 5 feet and 11 inches, weight is 188 pounds. Pulse is 70 and irregularly irregular. Blood pressure is 130/72. HEENT: Sclerae are nonicteric. Pupils are equal and round bilaterally. NECK: Supple without bruit. CHEST: Clear bilaterally. CARDIAC: Heart rhythm is irregularly irregular. There are no murmurs. ABDOMEN: Soft and nontender without mass. EXTREMITIES: No cyanosis, clubbing, or edema. VASCULAR: He has palpable carotid, radial, femoral, and dorsalis pedis pulses bilaterally. The transmetatarsal amputation site is healing nicely. LABORATORY DATA: Hemoglobin is 16.8, platelet count is 177,000. Potassium is 4.1, creatinine is 1.02. PT/INR is 1.3. ASSESSMENT AND PLAN: This is a pleasant 79-year-old gentleman with severe three-vessel disease. Ejection fraction was 28%. I have discussed coronary artery bypass grafting with him and he is agreeable to proceed. We will get him on the outpatient schedule later this week. Risks, benefits, and options have been outlined. He will hold his Pradaxa for now. Job ID: [id number]
== END 2020-03-22 13:00 | disposition home or self-care (01) ==
LOC: CCL 05:55
PROVIDERS: ATTEND Internal Medicine Cardiovascular Disease
PROC: 4A023N7 Measurement of Cardiac Sampling and Pressure, Left Heart, Percutaneous Approach (ICD-10-PCS; principal; 2020-03-22)
PROC: B2111ZZ Fluoroscopy of Multiple Coronary Arteries using Low Osmolar Contrast (ICD-10-PCS; 2020-03-22)
DX: I25.10 Atherosclerotic heart disease of native coronary artery without angina pectoris (principal); I25.82 Chronic total occlusion of coronary artery; I42.9 Cardiomyopathy, unspecified; I48.19 Other persistent atrial fibrillation; I35.1 Nonrheumatic aortic (valve) insufficiency; I10 Essential (primary) hypertension; E78.5 Hyperlipidemia, unspecified; Z79.01 Long term (current) use of anticoagulants; Z79.899 Other long term (current) drug therapy; Z88.1 Allergy status to other antibiotic agents; Z88.5 Allergy status to narcotic agent; Z89.432 Acquired absence of left foot; Z95.820 Peripheral vascular angioplasty status with implants and grafts
CPT/HCPCS: 76942; 85347; 93454; J1644; Q9967

== ENCOUNTER 2020-03-23 06:12 | Outpatient (CLI) | payer MEDICARE, BC, OTHER ==
[2020-03-24 18:05] LABS: SARS-CoV-2 MS2 Positive; SARS-CoV-2 N Gene Negative; SARS-CoV-2 S Gene Negative; SARS-CoV-2 orf1ab Negative
== END 2020-03-23 06:13 | disposition home or self-care (01) ==
LOC: LABBT 06:12
PROVIDERS: ATTEND Thoracic Surgery (Cardiothoracic Vascular Surgery)
DX: Z01.812 Encounter for preprocedural laboratory examination (principal); Z11.59 Encounter for screening for other viral diseases; I25.10 Atherosclerotic heart disease of native coronary artery without angina pectoris
CPT/HCPCS: 87635; U0003

== ENCOUNTER 2020-03-23 08:45 | Inpatient (IN) | payer MEDICARE, BC, OTHER ==
[2020-03-24] MEDS ORDERED: Bupivacaine PF 0.5% 30 ML VIAL ONE (06:26)
[2020-03-24] MEDS ORDERED: EPINEPHrine 1 MG/ML AMP ONE (06:26)
[2020-03-24] MEDS ORDERED: Albumin 5% 500 ML ONE (06:26)
[2020-03-24] MEDS ORDERED: Dexamethasone 4 mg/ml Vial ONE (06:26)
[2020-03-24] MEDS ORDERED: Fentanyl 250 MCG/5 ML VIAL ONE (06:52)
[2020-03-24] MEDS ORDERED: Midazolam HCl 5 mg/5 ml Vial ONE (06:52)
[2020-03-24] MEDS ORDERED: Heparin 10,000 UNITS/1 ML VIAL 30,000 UNITS in Sodium Chloride 0.9% 1,000 ML FS SCH (07:15)
[2020-03-24] MEDS ORDERED: Midazolam HCl 2 mg/2 ml Vial ONE (07:30)
[2020-03-24] MEDS ORDERED: Vecuronium 10 MG VIAL ONE ×2 (10:30→11:23)
[2020-03-24] MEDS ORDERED: Potassium Chloride 60 MEQ/30 ML VIAL ONE (11:23)
[2020-03-24] MEDS ORDERED: Magnesium Sulfate 1 GM/2 ML VIAL ONE (11:23)
[2020-03-24] MEDS ORDERED: Dexamethasone 20 MG/5 ML VIAL ONE (11:23)
[2020-03-24] MEDS ORDERED: Protamine Sulfate 250 MG/25 ML VIAL ONE (11:23)
[2020-03-24] MEDS ORDERED: Papaverine 60 MG/2 ML VIAL ONE (11:23)
[2020-03-24] MEDS ORDERED: DOPamine 400 MG/10 ML VIAL ONE (11:23)
[2020-03-24] MEDS ORDERED: Heparin 30,000 units/30 ml VIAL ONE (11:23)
[2020-03-24] MEDS ORDERED: PROPOFOL 200 MG/20 ML VIAL ONE (11:23)
[2020-03-24] MEDS ORDERED: Lidocaine 2% PF 5 ML VIAL ONE (11:23)
[2020-03-24] MEDS ORDERED: Thrombin 5000 UNITS/5 ML VIAL ONE (11:23)
[2020-03-24] MEDS ORDERED: Heparin 5,000 UNITS/ML VIAL ONE (11:23)
[2020-03-24] MEDS ORDERED: Cardioplegic Soln 1,000 ML BAG ONE (11:23)
[2020-03-24] MEDS ORDERED: Calcium Chloride 1 GM/10 ML Abboject SYRINGE ONE (11:23)
[2020-03-24] MEDS ORDERED: Ondansetron PF 4 MG/2 ML Vial ONE (11:23)
[2020-03-24] MEDS ORDERED: Sodium Bicarb 50 MEQ/50 ML Abboject 8.4% SYRINGE ONE (11:23)
[2020-03-24] MEDS ORDERED: Aminocaproic Acid 5 GM/20 ML VIAL ONE (11:23)
[2020-03-24] MEDS ORDERED: Nitroglycerin 50 MG/250 ML BOT 250 ML IVPB PRN (13:13)
[2020-03-24] MEDS ORDERED: Hetastarch 6% 500 ML 500 ML IVPB PRN (13:13)
[2020-03-24] MEDS ORDERED: Acetaminophen 325 MG TAB PO PRN (13:13)
[2020-03-24] MEDS ORDERED: Bisacodyl 10 MG SUPP PR PRN (13:13)
[2020-03-24] MEDS ORDERED: traMADol HCl 50 MG TAB PO PRN ×2 (13:13)
[2020-03-24] MEDS ORDERED: Guaifenesin DM 100-10/5 ML UDCUP PO PRN (13:13)
[2020-03-24] MEDS ORDERED: Ondansetron PF 4 MG/2 ML Vial IVP PRN (13:13)
[2020-03-24] MEDS ORDERED: hydrALAZINE 20 MG/ML VIAL SLOW IVP PRN (13:13)
[2020-03-24] MEDS ORDERED: Bisacodyl 5 MG TAB PO PRN (13:13)
[2020-03-24] MEDS ORDERED: Mag-Al 1200 mg/1200 mg/30 ML UDCUP PO PRN (13:13)
[2020-03-24] MEDS ORDERED: DOPamine 400 MG/D5W 250 ML 250 ML IVPB PRN (13:13)
[2020-03-24] MEDS ORDERED: Promethazine HCl 25 MG/ML VIAL IM PRN (13:13)
[2020-03-24] MEDS ORDERED: Norepinephrine 8 MG/0.9% NS 250 ML IVPB PRN (13:13)
[2020-03-24] MEDS ORDERED: Fentanyl 100 MCG/2 ML VIAL SLOW IVP PRN ×2 (13:13)
[2020-03-24] MEDS ORDERED: D5 1/2 NS w/20 mEq KCL 1,000 ML IV SCH (13:15)
[2020-03-24] MEDS ORDERED: Magnesium 2 GM/50 ML 2 GM in Premix Bag 1 BAG IVPB SCH (13:30)
[2020-03-24] MEDS: CEFAZOLIN 2 GM in Premix Bag 1 BAG IVPB SCH ×2 (13:39→23:00)
[2020-03-24 13:40] LABS: #Basophils 0.1 thou/uL (0.0-0.2); #Eosinphils 0.2 thou/uL (0.0-0.7); #Lymphocytes 1.7 thou/uL (1.20-3.40); #Monocytes 0.9 thou/uL (0.11-0.59); #Neutrophils 13.8 thou/uL (1.40-6.50); %Basophils 0.5 % (0.0-1.0); %Lymphocytes 10.3 % (21.0-51.0); %Monocytes 5.3 % (0.0-10.0); Hemoglobin 14.4 g/dL (14.0-18.0); Mean Corpuscular HGB CONC 36.3 g/dL (32.0-36.0); Mean Corpuscular Hemoglobin 31.5 pg (27.0-31.0); Mean Corpuscular Volume 86.8 fL (78.0-98.0); Platelet Count 135 thou/uL (130-400); RBC Distribution Width 14.2 % (11.5-14.5); Red Blood Cell (RBC) Count 4.58 mill/uL (4.70-6.10); White Blood Cell (WBC) Count 16.6 thou/uL (4.8-10.8)
[2020-03-24 13:47] LABS: INR-International Normal Ratio 1.4; PTT 32.8 sec (22.9-36.1); Prothrombin Time 16.7 sec (12.0-14.7)
[2020-03-24 13:56] LABS: Actual Bicarbonate (HCO3a) 18.4 mEq/L (22-28); Base Excess (BEa) -6.5 mEq/L (-2.0 to +3.0); CO2 Tension 34.9 mmHg (35.0-45.0); Calcium, Ionized (arterial) 1.27 mmol/L (1.12-1.30); Carboxyhemoglobin (COHb) 1.4 gm% (0.0-3.0); Hemoglobin (Hb) 14.3 g/dL (14.0-18.0); O2 Tension (PaO2), arterial 88.4 mmHg (> 70.0); Potassium - ABG Lab 3.25 mmol/L (3.70-5.30); pH, Arterial 7.34 (7.35-7.45)
[2020-03-24 13:57] LABS: ALV-art Gradient 295.775 (0-20); Puncture Site ART LINE
[2020-03-24 14:02] LABS: Anion Gap 14 mmol/L (10-20); BUN (Urea Nitrogen) 17 mg/dL (8.4-25.7); Calc. Creatinine Clearance 69 mL/min (70-130); Calcium 8.8 mg/dL (7.8-10.44); Carbon Dioxide 20 mmol/L (23-31); Chloride 110 mmol/L (98-107); Estimated GFR-MDRD 66; Glucose 186 mg/dL (83-110); Potassium 3.3 mmol/L (3.5-5.1); Sodium 141 mmol/L (136-145)
--- NOTE | 2020-03-24 15:09 | RAD ---
PORTABLE SUPINE CHEST: 03/24/20 INDICATIONS; Postop sternotomy. ET tube appears in adequate position above graciela. Postop sternotomy changes with drainage catheters. Central line appears adequately positioned. Left lung base is poorly evaluated. The left basilar atelectasis or infiltrate cannot be excluded. Ev idence of right medial lung base atelectasis. Upper lung zones are aerated and clear. IMPRESSION: Postoperative changes with evidence of bilateral atelectasis. Follow-up recommended. POS: AH
[2020-03-24] MEDS: Potassium Chloride 20 MEQ/100 ML PREMIX BAG IVPB PRN ×2 (15:15→21:03)
[2020-03-24 15:24] VITALS: BMI 26.1
--- NOTE | 2020-03-24 15:47 | EKG ---
Test Reason : PREOP Blood Pressure : / mmHG Vent. Rate : 064 BPM Atrial Rate : 277 BPM P-R Int : 000 ms QRS Dur : 120 ms QT Int : 416 ms P-R-T Axes : 000 -34 053 degrees QTc Int : 429 ms Atrial fibrillation with premature ventricular or aberrantly conducted complexes Left axis deviation Non-specific intra-ventricular conduction delay Nonspecific ST and T wave abnormality , probably digitalis effect Abnormal ECG Confirmed by GEOVANNA ESTRADA ([id number]) on 03/24/2020 3:47:26 PM Referred By: JOSEY Confirmed By:GEOVANNA ESTRADA
--- NOTE | 2020-03-24 15:52 | EKG ---
Test Reason : POST CABG Blood Pressure : / mmHG Vent. Rate : 065 BPM Atrial Rate : 065 BPM P-R Int : 244 ms QRS Dur : 132 ms QT Int : 558 ms P-R-T Axes : 045 -55 071 degrees QTc Int : 580 ms Sinus rhythm with 1st degree A-V block Left axis deviation Non-specific intra-ventricular conduction delay Inferior infarct , age undetermined cannot be excluded Abnormal ECG Confirmed by GEOVANNA ESTRADA ([id number]) on 03/24/2020 3:52:10 PM Referred By: Abbe DOWLING Confirmed By:GEOVANNA ESTRADA
--- NOTE | 2020-03-24 16:31 | OP ---
DATE OF PROCEDURE: 03/24/2020 PREOPERATIVE DIAGNOSES: Coronary artery disease/hypertension/chronic atrial fibrillation/hyperlipidemia/peripheral vascular disease. POSTOPERATIVE DIAGNOSIS: Coronary artery disease/hypertension/chronic atrial fibrillation/hyperlipidemia/peripheral vascular disease. PROCEDURES PERFORMED: 1. Coronary artery bypass grafting x5 -. a. Left internal mammary artery 2.0 mm distal left anterior descending - good conduit and target. b. Reverse saphenous vein to 1.5 mm diffusely-diseased diagonal - good conduit and target. c. Reverse saphenous vein to 1.5 mm diffusely-diseased ramus - good conduit and target. d. Reverse saphenous vein to 1.5 mm obtuse marginal - good conduit and target. e. Reverse saphenous vein 1.5 mm posterior descending artery - good conduit and target. ANESTHESIA: Endotracheal - Dr. Rey Pineda. PUMP TIME: 108 minutes. CROSS-CLAMP TIME: 57 minutes. LOW-CORE TEMPERATURE: 34 degrees Celsius. DRAINS: 24-Grenadian chest tubes x2. DRIPS: Dopamine at 2 mcg/kg per minute. TRANSFUSIONS: None. DESCRIPTION OF PROCEDURE: After consent was obtained, the patient was brought to the operating room and placed in supine position on the operating table. Appropriate central line and monitors were placed and general endotracheal anesthesia was induced. Chest, abdomen, and legs were prepped and draped in usual sterile fashion. Greater saphenous vein was harvested from both lower extremities to obtain adequate length for our bypasses. Wounds irrigated and closed in layers. Median sternotomy was performed. Left internal mammary artery was harvested as a pedicle graft. The patient was systemically heparinized. Distal pedicle was divided and infused with papaverine. Thymic fat and pericardium were divided with cautery. Pericardial stay sutures were placed. Aortic and atrial cannulation was performed. After adequate heparinization, the retrograde prime was performed and the patient was placed on cardiopulmonary bypass. Distal targets were marked. Aortic cross-clamp was applied, and antegrade sanguineous cardioplegic arrest was obtained. 1 L of antegrade cold [place] cardioplegia was given. Topical cold solution was used. The left atrial appendage was ligated in a dual-layered fashion with running 4-0 Prolene suture. Reverse saphenous vein was anastomosed to the OM in end-to-side fashion with running 7-0 Prolene suture. Anastomosis was tested and was hemostatic. Reverse saphenous vein was anastomosed to the ramus in end-to-side fashion with running 7-0 Prolene suture. Anastomosis was tested and was hemostatic. Reverse saphenous vein was anastomosed to the diagonal just distal to its bifurcation. Anastomosis was tested and was hemostatic. Reverse saphenous vein was anastomosed to PDA in end-to-side fashion with running 7-0 Prolene suture. Anastomosis was tested and was hemostatic. Mammary artery was brought through a window in the pericardium and anastomosed to distal LAD in an end-to-side fashion with running 7-0 Prolene suture. On release of mammary clamps, good hooding of the anastomosis and good distal flow. Pedicle was secured with interrupted 6-0 Prolene suture. Cross-clamp was removed and partial occluding clamp placed. Saphenous veins to the PDA, diagonal, and OM were anastomosed to the aortic root. Saphenous vein to the ramus was anastomosed to the sidewall of the OM graft. Partial occluding clamp was removed and graft was de-aired. Anastomoses were inspected for hemostasis, which was good. The patient was warmed and weaned from cardiopulmonary bypass. After resumption of sinus rhythm, good hemodynamics, temperature greater than 36.5, bypass was discontinued. Transfusion was given. Protamine was administered. Decannulation was performed and pursestring suture secured. A 24-Grenadian chest tubes x2 were placed in mediastinum. Sternum was treated with vancomycin paste. The sternum was closed with #7 wire. Sternum was treated with platelet-rich plasma, wires twisted and buried. Peristernal block with 0.5% Marcaine was performed. Wounds were then irrigated and treated with platelet-poor plasma and closed in multiple layers. Needle, sponge, and instrument counts were reported correct at the end of the procedure. The patient tolerated the procedure well, was transferred to the intensive care in stable, but critical condition. Job ID: [id number]
[2020-03-24 16:35] LABS: Actual Bicarbonate (HCO3a) 19.6 mEq/L (22-28); Base Excess (BEa) -2.4 mEq/L (-2.0 to +3.0); CO2 Tension 27.3 mmHg (35.0-45.0); Calcium, Ionized (arterial) 1.17 mmol/L (1.12-1.30); Carboxyhemoglobin (COHb) 1.1 gm% (0.0-3.0); Hemoglobin (Hb) 15.1 g/dL (14.0-18.0); O2 Tension (PaO2), arterial 78.5 mmHg (> 70.0); Potassium - ABG Lab 3.69 mmol/L (3.70-5.30); pH, Arterial 7.47 (7.35-7.45)
[2020-03-24 16:38] LABS: ALV-art Gradient 172.575 (0-20); Puncture Site ART LINE
[2020-03-24] MEDS: Ketorolac Tromethamine 30 MG/ML VIAL IVP SCH ×2 (18:21→23:26)
[2020-03-24 19:30] LABS: Hemoglobin 14.3 g/dL (14.0-18.0)
[2020-03-24 19:49] LABS: Potassium 3.7 mmol/L (3.5-5.1)
[2020-03-24] MEDS ORDERED: Famotidine/PF 20 mg/2ml Vial SLOW IVP SCH (21:00)
[2020-03-24] MEDS: Atorvastatin Calcium 40 MG TAB PO SCH (21:03)
[2020-03-25 04:05] LABS: #Lymphocytes 0.5 thou/uL (1.20-3.40); #Monocytes 0.6 thou/uL (0.11-0.59); #Neutrophils 9.3 thou/uL (1.40-6.50); %Eosinophils 0.1 % (0.0-10.0); %Lymphocytes 5.2 % (21.0-51.0); %Monocytes 5.6 % (0.0-10.0); %Neutrophils 89.1 % (42.0-75.0); Hemoglobin 12.8 g/dL (14.0-18.0); Mean Corpuscular HGB CONC 35.9 g/dL (32.0-36.0); Mean Corpuscular Hemoglobin 31.3 pg (27.0-31.0); Platelet Count 128 thou/uL (130-400); RBC Distribution Width 14.3 % (11.5-14.5); Red Blood Cell (RBC) Count 4.09 mill/uL (4.70-6.10); White Blood Cell (WBC) Count 10.4 thou/uL (4.8-10.8)
[2020-03-25 04:28] LABS: Anion Gap 9 mmol/L (10-20); BUN (Urea Nitrogen) 20 mg/dL (8.4-25.7); Calc. Creatinine Clearance 66 mL/min (70-130); Calcium 8.6 mg/dL (7.8-10.44); Carbon Dioxide 26 mmol/L (23-31); Chloride 112 mmol/L (98-107); Estimated GFR-MDRD 63; Glucose 179 mg/dL (83-110); Potassium 3.9 mmol/L (3.5-5.1); Sodium 143 mmol/L (136-145)
[2020-03-25] MEDS: Potassium Chloride 20 MEQ/100 ML PREMIX BAG IVPB PRN (05:07)
[2020-03-25] MEDS: Ketorolac Tromethamine 30 MG/ML VIAL IVP SCH ×3 (05:07→16:58)
[2020-03-25] MEDS: CEFAZOLIN 2 GM in Premix Bag 1 BAG IVPB SCH (05:08)
[2020-03-25] MEDS ORDERED: Artificial Tears 18 DROP/0.9 ML EA EYE PRN (07:34)
[2020-03-25] MEDS ORDERED: Bisacodyl 5 MG TAB PO PRN (07:34)
[2020-03-25] MEDS ORDERED: Zolpidem Tartrate 5 MG TAB PO PRN (07:34)
[2020-03-25] MEDS ORDERED: Guaifenesin DM 100-10/5 ML UDCUP PO PRN (07:34)
[2020-03-25] MEDS ORDERED: Mineral Oil ENEMA PR PRN (07:34)
[2020-03-25] MEDS ORDERED: Mag-Al 1200 mg/1200 mg/30 ML UDCUP PO PRN (07:34)
[2020-03-25] MEDS ORDERED: Nitroglycerin 0.4 MG TAB (25 Tab Bottle) SL PRN (07:34)
[2020-03-25] MEDS ORDERED: diphenhydrAMINE 25 MG CAP PO PRN (07:34)
[2020-03-25] MEDS ORDERED: Milk Of Magnesia 30 ML UDCUP PO PRN (07:34)
[2020-03-25] MEDS ORDERED: Bisacodyl 10 MG SUPP PR PRN (07:34)
--- NOTE | 2020-03-25 07:46 | RAD ---
Exam: Chest one view HISTORY:Status post open heart surgery Comparison: 03/24/2020 FINDINGS: Lines and tubes: Stable right-sided vascular catheter. Interval removal of endotracheal tube. Stable mediastinal drainage catheters. Cardiac silhouette:Stable cardiomegaly. Aorta: Atherosclerosis of the aorta is redemonstrated Pulmonary vessels: Normal Costophrenic angles: Clear LUNGS: Persistent opacification of the left lung base. Pneumothorax: None Osseous abnormalities: None IMPRESSION: 1. Interval removal of endotracheal tube. 2. Persistent opacification left lung base may represent atelectasis, aspiration or pneumonia.
[2020-03-25] MEDS: Magnesium 2 GM/50 ML 2 GM in Premix Bag 1 BAG IVPB SCH (08:21)
[2020-03-25] MEDS: Famotidine 20 MG TAB PO SCH ×2 (08:27→20:22)
[2020-03-25] MEDS: Aspirin 325 MG TAB PO SCH (08:27)
[2020-03-25] MEDS: Vit A,C & E/Lutein/Minerals Tablet PO SCH ×2 (08:27→20:22)
[2020-03-25] MEDS: Multivit, Therapeutic 1 TAB PO SCH (08:27)
[2020-03-25] MEDS: Fish Oil 1,000 MG CAP PO SCH (08:28)
[2020-03-25] MEDS: Atorvastatin Calcium 40 MG TAB PO SCH (20:22)
[2020-03-25] MEDS: Amlodipine 10 MG TAB PO SCH (20:22)
[2020-03-26] MEDS: Ketorolac Tromethamine 30 MG/ML VIAL IVP SCH ×4 (00:27→17:21)
[2020-03-26] MEDS ORDERED: Furosemide 40 MG/4 ML VIAL SLOW IVP SCH (07:15)
[2020-03-26] MEDS: Famotidine 20 MG TAB PO SCH ×2 (08:12→21:08)
[2020-03-26] MEDS: Multivit, Therapeutic 1 TAB PO SCH (08:12)
[2020-03-26] MEDS: Vit A,C & E/Lutein/Minerals Tablet PO SCH ×2 (08:12→21:08)
[2020-03-26] MEDS: Fish Oil 1,000 MG CAP PO SCH (08:12)
[2020-03-26] MEDS: Magnesium 2 GM/50 ML 2 GM in Premix Bag 1 BAG IVPB SCH (08:12)
[2020-03-26] MEDS: Aspirin 325 MG TAB PO SCH (08:12)
--- NOTE | 2020-03-26 12:25 | PDOC.BPN ---
- Brief Progress Note NED SUGGS Male : 1940 : 1940 Patient Age: 79 Ned Suggs is a 79 yo white male 2-day post op CABG and Left Atrial appendage ligation. Labs has not been updated since yesterday. Vital signs unremarkable. Weight down from 90.446kg, down from 92.1kg Pt says he feels better overall. Pt says he slept well during the night. He ambulated yesterday, 30 yards in the morning, and then 100 yards in the afternoon. He complains of pain in his left medial thigh around the incision area. He is going into have a shower today. Pt has been using the spirometer, with the highest level at 1200mL.Pt has not passed any stools, but has passed gas. Lung sounds clear upon auscultation, heart sounds regular, with absent murmurs. Absent carotid bruit. Mild edema. Plan & Assessment: 1) continue spirometry 2) continue Cardio rehab 3) have pt shower Initialized on 03/25/20 12:47 - END OF NOTE
[2020-03-26] MEDS: Atorvastatin Calcium 40 MG TAB PO SCH (21:08)
[2020-03-26] MEDS: Amlodipine 10 MG TAB PO SCH (21:08)
[2020-03-27] MEDS: Ketorolac Tromethamine 30 MG/ML VIAL IVP SCH ×2 (06:16)
[2020-03-27 07:17] VITALS: BP 137/68; TEMP 98.5
[2020-03-27] MEDS: Aspirin 325 MG TAB PO SCH (08:15)
[2020-03-27] MEDS: Famotidine 20 MG TAB PO SCH (08:15)
[2020-03-27] MEDS: Multivit, Therapeutic 1 TAB PO SCH (08:15)
[2020-03-27] MEDS: Vit A,C & E/Lutein/Minerals Tablet PO SCH (08:15)
[2020-03-27] MEDS: Fish Oil 1,000 MG CAP PO SCH (08:15)
--- NOTE | 2020-03-27 11:05 | DIS ---
DATE OF ADMISSION: 03/24/2020 DATE OF DISCHARGE: 03/27/2020 DIAGNOSES: 1. Coronary artery disease. 2. Dyslipidemia. 3. Hypertension. 4. Chronic atrial fibrillation. PROCEDURES: 1. Coronary artery bypass grafting x5-left internal mammary artery to LAD, saphenous vein graft to diagonal, ramus, OM, and PDA. 2. Ligation of left atrial appendage. DESCRIPTION OF HOSPITAL STAY: Mr. Suggs was admitted after outpatient catheterization for coronary artery bypass grafting. He has done well postoperatively. He remains in atrial fibrillation with a slow ventricular response. He is being discharged to home to follow up with me in [address] Villeda in a month. DISCHARGE MEDICATIONS: 1. Aspirin 325 mg daily. 2. Amlodipine 10 mg at bedtime. 3. Atorvastatin 40 mg at bedtime. 4. Tramadol 50 mg q.6 p.r.n. Job ID: [id number]
== END 2020-03-27 11:05 | disposition home or self-care (01) | DRG 236 ==
LOC: SURG A 03-24 05:52 → CCU 03-24 13:16 → 2NO 03-25 12:37
PROVIDERS: ADMIT Thoracic Surgery (Cardiothoracic Vascular Surgery); ATTEND Thoracic Surgery (Cardiothoracic Vascular Surgery)
PROC: 021309W Bypass Coronary Artery, Four or More Arteries from Aorta with Autologous Venous Tissue, Open Approach (ICD-10-PCS; principal; 2020-03-24)
PROC: 02100Z9 Bypass Coronary Artery, One Artery from Left Internal Mammary, Open Approach (ICD-10-PCS; 2020-03-24)
PROC: 06BQ0ZZ Excision of Left Saphenous Vein, Open Approach (ICD-10-PCS; 2020-03-24)
PROC: 06BP0ZZ Excision of Right Saphenous Vein, Open Approach (ICD-10-PCS; 2020-03-24)
PROC: 5A1221Z Performance of Cardiac Output, Continuous (ICD-10-PCS; 2020-03-24)
PROC: 02L70ZK Occlusion of Left Atrial Appendage, Open Approach (ICD-10-PCS; 2020-03-24)
PROC: 3E033XZ Introduction of Vasopressor into Peripheral Vein, Percutaneous Approach (ICD-10-PCS; 2020-03-24)
DX: I25.10 Atherosclerotic heart disease of native coronary artery without angina pectoris (principal); I48.20 Chronic atrial fibrillation, unspecified; E78.5 Hyperlipidemia, unspecified; I10 Essential (primary) hypertension; I73.9 Peripheral vascular disease, unspecified; Z79.899 Other long term (current) drug therapy
CPT/HCPCS: 36416; 36430; 71045; 76942; 80048; 82805; 85025; 85347; 85610; 85730; 86850; 86900; 86901; 87635; 93005; 93010; 93454; 93798; 94002; J0171; J0690; J1100; J1265; J1642; J1644; J1885; J1940; J2001; J2250; J2405; J2440; J2704; J2720; J3010; J3370; J3475; J3480; P9045; Q9967; S0017; S0020; S0028; U0003

== ENCOUNTER 2020-03-31 11:24 | Observation (INO) | payer MEDICARE, BC ==
[2020-03-31 12:08] LABS: #Eosinphils 0.5 thou/uL (0.0-0.7); #Lymphocytes 1.3 thou/uL (1.20-3.40); #Neutrophils 6.4 thou/uL (1.40-6.50); %Eosinophils 5.6 % (0.0-10.0); %Lymphocytes 13.7 % (21.0-51.0); %Monocytes 10.8 % (0.0-10.0); %Neutrophils 69.9 % (42.0-75.0); Hemoglobin 12.2 g/dL (14.0-18.0); Mean Corpuscular HGB CONC 34.8 g/dL (32.0-36.0); Mean Corpuscular Hemoglobin 30.5 pg (27.0-31.0); Mean Corpuscular Volume 87.7 fL (78.0-98.0); Mean Platelet Volume 6.8 fL (7.4-10.4); Platelet Count 292 thou/uL (130-400); RBC Distribution Width 14.2 % (11.5-14.5); Red Blood Cell (RBC) Count 3.99 mill/uL (4.70-6.10); White Blood Cell (WBC) Count 9.1 thou/uL (4.8-10.8)
--- NOTE | 2020-03-31 12:23 | CT ---
EXAM: CT brain without contrast HISTORY: Right hand pain and numbness COMPARISON: None TECHNIQUE: Multiple contiguous axial images were obtained and a CT of the brain without contrast. FINDINGS: There are scattered hypodensities in the subcortical and periventricular white matter consi stent with small vessel ischemic disease. There is no evidence of hydrocephalus, intracranial hemorrhage, or extra-axial fluid collection. The calvarium and overlying soft tissues are unremarkable. The visualized paranasal sinuses and masto id air cells are well aerated. IMPRESSION: No evidence of acute intracranial abnormality FREDO Benton notified of the findings at 12:20 PM on 03/31/2020
[2020-03-31 12:35] LABS: ALT (SGPT) 25 U/L (8-55); AST (SGOT) 32 U/L (5-34); Albumin 3.5 g/dL (3.4-4.8); Alkaline Phosphatase 67 U/L (40-110); Anion Gap 13 mmol/L (10-20); BUN (Urea Nitrogen) 16 mg/dL (8.4-25.7); Bilirubin, Total 1.6 mg/dL (0.2-1.2); Calc. Creatinine Clearance 0 mL/min (70-130); Calcium 9.5 mg/dL (7.8-10.44); Carbon Dioxide 26 mmol/L (23-31); Chloride 105 mmol/L (98-107); Estimated GFR-MDRD 75; Globulin 3.2 g/dL (2.4-3.5); Glucose 128 mg/dL (83-110); Potassium 3.6 mmol/L (3.5-5.1); Protein, Total 6.7 g/dL (5.8-8.1); Sodium 140 mmol/L (136-145)
[2020-03-31 12:59] LABS: CKMB 2.4 ng/mL (0-6.6)
[2020-03-31] MEDS ORDERED: Enoxaparin Sodium 100 MG/ML SYRINGE ONE (13:56)
[2020-03-31] MEDS ORDERED: traMADol HCl 50 MG TAB PO PRN (13:56)
--- NOTE | 2020-03-31 14:56 | MRI ---
MRI BRAIN WITHOUT CONTRAST: HISTORY: Right arm weakness and numbness. FINDINGS: Correlation was made with the CT scan from earlier today. No restricted diffusion is seen. There are changes of cortical atrophy and chronic small-vessel isch emic disease. The ventricular size is appropriate and the basilar cisterns patent. No evidence of infarct, hemorrhage, midline shift, or abnormal extraaxial fluid collections is seen. The visualized paranasal sinuses are well aerated. IMPRESSION: No evidence of acute intracranial process. POS: [facility]
[2020-03-31 17:21] VITALS: BP 163/87; TEMP 97.1
[2020-03-31 17:27] VITALS: BMI 26.7
[2020-03-31 17:59] LABS: Troponin I 0.258 ng/mL (< 0.028)
[2020-03-31] MEDS ORDERED: Atorvastatin Calcium 40 MG TAB PO SCH (21:00)
[2020-03-31] MEDS ORDERED: Enoxaparin Sodium 100 MG/ML SYRINGE SC SCH (23:00)
--- NOTE | 2020-04-01 03:51 | SS ---
DATE OF ADMISSION: 03/31/2020 DATE OF DISCHARGE: 03/31/2020 DISCHARGE DIAGNOSES: As of the followin. Transient ischemic attack. 2. Coronary artery disease status post coronary artery bypass grafting, on 03/27 he was discharged. 3. Hypertension. 4. Hyperlipidemia. 5. Atrial fibrillation. HOSPITAL COURSE: The patient is a 79-year-old male, who initially presented to the hospital with complaints of right-sided finger sensory loss, which initially was on his pinky finger. This happened on Sunday. The patient stated that his symptoms resolved. However, today he was holding a pen doing crossword puzzle when he felt that he was unable to hold his pen and unable to make a fist. At this time, he was brought into the ER. The patient recently had a CABG and also underwent a left atrial appendage ligation. He continues to be in atrial fibrillation on the EKG. The patient was initially on Pradaxa, which was stopped due to his recent surgery. I did speak with his CV surgeon who was okay restarting the patient back on his Pradaxa given his stroke like symptoms. The patient had an MRI of the brain and it was negative for a stroke. I will recommend the patient getting a carotid Doppler as an outpatient. 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 I will not repeat that. The patient currently is completely asymptomatic. I have told the patient to restart the Pradaxa at 9 p.m. tonight. I did discuss this with the pharmacist. The patient will be discharged home. He has an appointment with his primary care doctor tomorrow. His home medications will be aspirin 81 mg daily, Pradaxa 150 mg twice daily, amlodipine 10 mg at bedtime, atorvastatin 40 mg at bedtime, [place] fish oil 1 p.o. daily. PHYSICAL EXAMINATION: VITAL SIGNS: Temperature of 97.1, 74, 17, 97% on room air, 163/87. GENERAL: He is awake, alert, and oriented x3. Does not appear in distress. CV: S1, S2 present. No murmurs, rubs, or gallops. ABDOMEN: Soft and nontender. Bowel sounds are present x2. EXTREMITIES: No edema. Pedal pulses are present x2. He does have amputations on the right toe, all the toes are amputated. NEUROVASCULAR: No focal deficits noted. SKIN: No cuts lesions or bruises noted. PAST MEDICAL HISTORY: History of popliteal aneurysm, hyperlipidemia, hypertension, chronic atrial fibrillation, bradycardia, aortic insufficiency and CAD. PAST SURGICAL HISTORY: He has had a CABG recently, hip surgery, prostatectomy, unsuccessful multiple cardioversions and right foot toe amputation. FAMILY HISTORY: Mother , diagnosed with stroke. Father of cancer. SOCIAL HISTORY: He is a nonsmoker. No alcohol use. No drug use. He is a full code. REVIEW OF SYSTEMS: All negative except for the ones mentioned above in the HPI. LABORATORY RESULTS: He did have a troponin of 0.3, however, patient is not having any chest pain currently. Sodium of 140, potassium of 3.6, BUN of 16, creatinine 0.97. Hematology. His WBCs are 9.1, hemoglobin of 12.2, hematocrit of 35.0, platelets of 292. He did have a chest x-ray, which appeared to be pretty normal, just had some postoperative changes, evidence of bilateral atelectasis. He also had a CT brain and MRI brain. The MRI brain indicated no evidence of acute intracranial processes. I discussed this with the patient. I will discharge him home. He has an appointment with his PCP tomorrow. I have discussed this also with the CV surgeon who is okay for the patient to be discharged home. The patient will follow up with primary care and I told him that if his symptoms return, he needs to come back to the hospital. I would recommend the patient getting a carotid Doppler given his severe peripheral vascular disease as an outpatient. Job ID: [id number]
[2020-04-01] MEDS ORDERED: Multivit, Therapeutic 1 TAB PO SCH (09:00)
[2020-04-01] MEDS ORDERED: Enoxaparin Sodium 100 MG/ML SYRINGE SC SCH (09:00)
[2020-04-01] MEDS ORDERED: Aspirin 325 mg Enteric Coated Tablet PO SCH (09:00)
[2020-04-01] MEDS ORDERED: Prevnar 13-Val Conj/PF 0.5 ML SYRINGE IM ONE (18:30)
== END 2020-03-31 18:33 | disposition home or self-care (01) ==
LOC: ERS 11:24 → 2SE 14:00
PROVIDERS: ADMIT Internal Medicine; ATTEND Internal Medicine
DX: G45.9 Transient cerebral ischemic attack, unspecified (principal); I25.10 Atherosclerotic heart disease of native coronary artery without angina pectoris; I10 Essential (primary) hypertension; E78.5 Hyperlipidemia, unspecified; I48.20 Chronic atrial fibrillation, unspecified; Z79.82 Long term (current) use of aspirin; Z79.899 Other long term (current) drug therapy; Z88.1 Allergy status to other antibiotic agents; Z88.5 Allergy status to narcotic agent; Z95.1 Presence of aortocoronary bypass graft
CPT/HCPCS: 36415; 36416; 70450; 70551; 80053; 82553; 84484; 85025; 93005; 96360; 96372; G0378; J1650

== ENCOUNTER 2020-04-17 15:19 | Emergency (ER) | payer MEDICARE, BC ==
[~2020-04-17 15:19] MED LIST: Iopamidol-370 76% 500 ML 1 ML ONE
--- NOTE | 2020-04-17 16:23 | RAD ---
EXAM: CHEST ONE VIEW HISTORY: Fever. Post CABG 4 weeks ago. Redness and swelling around incision site to right upper thigh. COMPARISON: 03/25/2020 FINDINGS: Right-sided vascular catheter has been removed. Postsurgical changes related to CABG are again noted. The cardiac silhouette is enlarged. Pulmonary vasculature is within normal limits. There is suboptimal evaluation of the retrocardiac region left lung base secondary to underpenetrated techniqu e and the enlarged cardiac silhouette. However, there is suggestion of opacification at the left lung base which may represent left pleural effusion and associated atelectasis. Pneumonia left lung b ase could not be entirely excluded. Calcified granuloma lateral right upper lung zone is seen. Vascular calcifications are seen in the thoracic aorta. No other interval change. IMPRESSION: 1. Persistent opacification left lung base which may represent small left pleural effusion and atelec tasis. However, pneumonia left lung base is a possibility. 2. Cardiomegaly. 3. Interval removal of the right-sided vascular catheter.
[2020-04-17 16:26] LABS: #Eosinphils 0.1 thou/uL (0.0-0.7); #Lymphocytes 0.9 thou/uL (1.20-3.40); #Monocytes 1.1 thou/uL (0.11-0.59); %Basophils 0.1 % (0.0-1.0); %Eosinophils 0.7 % (0.0-10.0); %Lymphocytes 8.4 % (21.0-51.0); %Monocytes 9.6 % (0.0-10.0); %Neutrophils 81.1 % (42.0-75.0); Hemoglobin 14.2 g/dL (14.0-18.0); Mean Corpuscular HGB CONC 36.3 g/dL (32.0-36.0); Mean Corpuscular Hemoglobin 31.7 pg (27.0-31.0); Mean Corpuscular Volume 87.3 fL (78.0-98.0); Mean Platelet Volume 7.4 fL (7.4-10.4); Platelet Count 205 thou/uL (130-400); RBC Distribution Width 14.7 % (11.5-14.5); Red Blood Cell (RBC) Count 4.47 mill/uL (4.70-6.10); White Blood Cell (WBC) Count 11.1 thou/uL (4.8-10.8)
[2020-04-17] MEDS ORDERED: Piperacillin/Tazobactam 4.5 GM VIAL ONE (16:45)
[2020-04-17 16:46] LABS: ALT (SGPT) 16 U/L (8-55); AST (SGOT) 18 U/L (5-34); Alkaline Phosphatase 85 U/L (40-110); Anion Gap 13 mmol/L (10-20); BUN (Urea Nitrogen) 17 mg/dL (8.4-25.7); Bilirubin, Total 2.3 mg/dL (0.2-1.2); Calc. Creatinine Clearance 0 mL/min (70-130); Calcium 9.5 mg/dL (7.8-10.44); Carbon Dioxide 25 mmol/L (23-31); Chloride 104 mmol/L (98-107); Estimated GFR-MDRD 71; Globulin 3.3 g/dL (2.4-3.5); Glucose 115 mg/dL (83-110); Potassium 3.7 mmol/L (3.5-5.1); Protein, Total 7.3 g/dL (5.8-8.1); Sodium 138 mmol/L (136-145)
--- NOTE | 2020-04-17 18:26 | CT ---
CT ANGIOGRAM THORAX WITH IV CONTRAST AND 3-D RECONSTRUCTIONS CLINICAL INDICATION: Right lower extremity wound. Dyspnea. Fever and dry cough. COMPARISON: None FINDINGS: Pulmonary arteries: No filling defects are seen in the central or segmental pulmonary arteries to sug gest a pulmonary embolus. Aorta: Vascular calcifications are seen in the thoracic aorta and to a greater extent involving the c oronary arteries. Postoperative changes related to CABG are seen. Lungs: There is a small to moderate size left pleural effusion with associated adjacent consolidation probably due to passive atelectasis, but pneumonia cannot be excluded. There is a masslike opacity seen within the lingula measuring 2.5 cm which could be related to focal pneumonia. However, follow-u p to resolution is recommended to exclude neoplastic process. There is atelectasis present at the right lung base. Mediastinum: There is mild inflammatory stranding in the anterior superior mediastinum likely related to recent postoperative changes. There is no fluid collection or gas seen in this region. Tiny foci of gas within the right atrial appendage may related to placement and injection via peripheral i ntravenous catheter. No enlarged lymph nodes are seen by CT size criteria. The heart is in enlarged. There is suggestion of a filling defect in the distal right internal jugular vein, but this is probably attributable to mixing of contrast as the injection was performed on the right. Thyroid gland: Grossly within normal limits; although, artifact extends through this region. Osseous structures: Degenerative changes are seen in the spine. Midline sternotomy is present. 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 Chest wall: Minimal stranding anterior to the sternum likely due to postoperative changes of CABG and sternotomy. Upper abdomen: Punctate nonobstructing superior pole left renal calculi with subcentimeter exophytic difficult to characterize hypodense lesion superior pole left kidney. There are also tiny increased density subcentimeter lesions in the superior pole of each kidney which could potentially represent h yperdense renal cystic lesions. Colonic diverticulosis is present IMPRESSION: 1. Masslike parenchymal density in the region of the lingula measuring 2.5 cm which may represent foc al area of pneumonia. However, follow-up to complete resolution is recommended to exclude underlying neoplastic process. 2. Small left pleural effusion with consolidation present likely attributable to passive atelectasis. 3. Cardiomegaly. 4. Recent postoperative changes related to CABG and median sternotomy. Dense coronary artery calcific ations are seen. 5. No CT findings to suggest a pulmonary embolus involving the central or segmental pulmonary arterie s.
[2020-04-17 18:47] LABS: Bacteria/HPF None Seen HPF (None Seen); Bilirubin Negative (Negative); Blood, Urine 2+ (Negative); Clarity Clear (Clear); Glucose, Urine (Dipstick) Normal (Negative); Ketone, Urine Negative (Negative); Leukocyte Negative Leu/uL (Negative); Mucous/LPF 1+ LPF (<2+); Nitrite Negative (Negative); Protein, Urine (Dipstick) 30 mg/dL (Neg-Trace); RBC/HPF Greater than 50 HPF (0-3); Specific Gravity, Urine 1.035 (1.002-1.036); Squamous Epithelial 0-3 HPF (0-3); Urobilinogen Normal mg/dL (Less than 2); pH, Urine 6.5 (5.0-9.0)
[2020-04-17] MEDS ORDERED: Lidocaine 1% w/Epinephrine 1:100K 20 ML VIAL ONE (20:08)
[2020-04-17] MEDS ORDERED: Acetaminophen 500 MG TAB ONE (20:55)
--- NOTE | 2020-04-18 01:54 | CON ---
DATE OF CONSULTATION: HISTORY OF PRESENT ILLNESS: This is a 79-year-old gentleman discharged from the hospital about 2 weeks ago following multivessel coronary bypass grafting by Ric. He underwent bypass grafting to the LAD, diagonal, ramus, OM, and PDA. He had vein saphenous harvest from both lower extremities. He was discharged from the hospital and readmitted transiently for some numbness and tingling in his fingers of his right hand. He then was seen in followup about five days ago, doing well. However, about three days ago, developed erythema and tenderness over the mid portion of the right thigh in the region of the saphenous vein harvest site. This progressed to the point that he presented to the ER tonight with a slight white count elevation and erythema and some fever. The patient was taking aspirin and Pradaxa at home, as well as some blood pressure and cholesterol medications. PHYSICAL EXAMINATION: GENERAL: Tonight, he is alert, cooperative, in no distress. LUNGS: Clear to auscultation. CHEST: Incision is healing nicely. EXTREMITIES: His right lower extremity has swelling, induration, and erythema in the midportion of the right thigh. There is no swelling distally in the leg. After discussion and consent from the patient, the area was infiltrated with 1% lidocaine with epinephrine and one incision was opened and about a 15 mL cavity was entered and some cloudy fluid was evacuated, which had been previously cultured in the emergency room. The wound was then packed and there was no bleeding. He is to be discharged home to remove the packing tomorrow and shower and then will follow up with us the first part of the week and receive a prescription for Keflex 500 t.i.d. for five days. Questions have been answered and he has also been asked to hold his Pradaxa until we see him in the office. Job ID: [id number]
== END 2020-04-17 21:05 | disposition home or self-care (01) ==
LOC: ERS 15:19
DX: T81.41XA Infection following a procedure, superficial incisional surgical site, initial encounter (principal); L02.415 Cutaneous abscess of right lower limb; L03.115 Cellulitis of right lower limb; E78.5 Hyperlipidemia, unspecified; I10 Essential (primary) hypertension; I25.10 Atherosclerotic heart disease of native coronary artery without angina pectoris; Z79.82 Long term (current) use of aspirin; Z79.899 Other long term (current) drug therapy
CPT/HCPCS: 71045; 71275; 80053; 81003; 81015; 83605; 85025; 87040; 87070; 87086; 87205; J2543; J3370; J7030; Q9967

== ENCOUNTER 2021-08-12 12:30 | Outpatient (CLI) | payer MEDICARE, BC ==
[2021-08-12 13:23] LABS: #Eosinphils 0.3 10x3/uL (0.0-0.5); #Monocytes 0.6 10x3/uL (0.0-1.1); #Neutrophils 4.3 10x3/uL (1.5-8.4); %Basophils 0.6 % (0.0-2.0); %Eosinophils 4.6 % (0.0-6.0); %Lymphocytes 19.7 % (18.0-47.0); %Monocytes 8.5 % (0.0-10.0); %Neutrophils 66.1 % (40.0-75.0); Hemoglobin 15.7 g/dL (13.5-17.5); Mean Corpuscular HGB CONC 36.9 g/dL (32.0-36.0); Mean Corpuscular Hemoglobin 34.4 pg (27.0-33.0); Mean Platelet Volume 9.6 fl (7.4-10.4); Platelet Count 121 10x3/uL (150-450); RBC Distribution Width 15.2 % (11.5-14.5); Red Blood Cell (RBC) Count 4.57 10x6/uL (4.32-5.72); White Blood Cell (WBC) Count 6.6 10x3/uL (3.5-10.5)
[2021-08-12 18:14] LABS: Anion Gap 15 mmol/L (10-20); BUN (Urea Nitrogen) 30 mg/dL (8.4-25.7); Calc. Creatinine Clearance 0 mL/min (70-130); Calcium 9.6 mg/dL (7.8-10.44); Carbon Dioxide 26 mmol/L (23-31); Chloride 103 mmol/L (98-107); Glucose 126 mg/dL (83-110); Potassium 4.4 mmol/L (3.5-5.1); Sodium 140 mmol/L (136-145)
[2021-08-13 00:36] LABS: SARS-CoV-2 PCR by NAA Not Detected (NotDetected)
== END 2021-08-12 12:31 | disposition home or self-care (01) ==
LOC: LABBT 12:30
PROVIDERS: ATTEND Internal Medicine Cardiovascular Disease
DX: Z01.812 Encounter for preprocedural laboratory examination (principal); Z20.822 Contact with and (suspected) exposure to COVID-19
CPT/HCPCS: 80048; 85025; U0003; U0005

== ENCOUNTER 2021-08-17 09:53 | Day surgery (SDC) | payer MEDICARE, BC ==
[2021-08-16 14:25] VITALS: BMI 25.7
[2021-08-17] MEDS ORDERED: PROPOFOL 20 ML ONE (12:13)
[2021-08-17] MEDS ORDERED: Ketamine 50 MG/ML (10ML VIAL) ONE (12:13)
[2021-08-17] MEDS ORDERED: Sodium Chloride 0.9% 10 ML ONE (12:57)
== END 2021-08-17 13:43 | disposition home or self-care (01) ==
LOC: SDC 09:53
PROVIDERS: ATTEND Internal Medicine Cardiovascular Disease
PROC: B246ZZ4 Ultrasonography of Right and Left Heart, Transesophageal (ICD-10-PCS; principal; 2021-08-17)
DX: I48.19 Other persistent atrial fibrillation (principal); I08.0 Rheumatic disorders of both mitral and aortic valves; I25.5 Ischemic cardiomyopathy; I11.0 Hypertensive heart disease with heart failure; I50.22 Chronic systolic (congestive) heart failure; I25.10 Atherosclerotic heart disease of native coronary artery without angina pectoris; E78.5 Hyperlipidemia, unspecified; Z79.01 Long term (current) use of anticoagulants; Z79.82 Long term (current) use of aspirin; Z79.899 Other long term (current) drug therapy; Z88.1 Allergy status to other antibiotic agents; Z88.5 Allergy status to narcotic agent; Z95.1 Presence of aortocoronary bypass graft; Z95.810 Presence of automatic (implantable) cardiac defibrillator; Z98.890 Other specified postprocedural states
CPT/HCPCS: 93312; J2704

== ENCOUNTER 2023-09-25 11:23 | Outpatient (CLI) | payer MEDICARE, BC | END 2023-09-25 11:24 | disposition home or self-care (01) | LOC: SCSRAD 11:23 | PROVIDERS: ATTEND Nurse Practitioner Family | DX: M25.562 Pain in left knee (principal); M17.12 Unilateral primary osteoarthritis, left knee ==

== ENCOUNTER 2024-11-25 08:57 | Outpatient (CLI) | payer MEDICARE | END 2024-11-25 08:58 | disposition home or self-care (01) | LOC: BICULT 08:57 | PROVIDERS: ATTEND Internal Medicine Nephrology | DX: N18.4 Chronic kidney disease, stage 4 (severe) (principal); N28.9 Disorder of kidney and ureter, unspecified; R30.0 Dysuria; R31.9 Hematuria, unspecified; R10.13 Epigastric pain; I25.10 Atherosclerotic heart disease of native coronary artery without angina pectoris; G47.33 Obstructive sleep apnea (adult) (pediatric); C61 Malignant neoplasm of prostate; N42.89 Other specified disorders of prostate; H25.813 Combined forms of age-related cataract, bilateral; E78.5 Hyperlipidemia, unspecified; M15.9 Polyosteoarthritis, unspecified; Q23.1 Congenital insufficiency of aortic valve; I71.40 Abdominal aortic aneurysm, without rupture, unspecified; N28.1 Cyst of kidney, acquired; I48.20 Chronic atrial fibrillation, unspecified; Z95.0 Presence of cardiac pacemaker; Z96.1 Presence of intraocular lens | CPT/HCPCS: 76770; 93975 ==